=== PATIENT | female | born 1955 | race Caucasian/White ===

== ENCOUNTER 2016-12-27 10:57 | Emergency (ER) | payer OTHER ==
[~2016-12-27] VITALS: Ht 165.1 cm; Wt 56.5 kg
[~2016-12-27 10:57] MED LIST: ALBU1.25 NEB; ALBUAER3 INH; AMLO10TA2 PO; ASPI1TAB69 PO; ATOR40TA16 PO; CLON0.1T PO; FLUT1INH INH; LISI-515 PO; LISI10TA3 PO; VENTAER INH
[2016-12-27 10:59] VITALS: BP 202/96; PULSE 93; RESP 18; TEMP 98.2; O2SAT 98
[2016-12-27 11:07] VITALS: BP 133/73; PULSE 93
--- NOTE | 2016-12-27 11:23 | PD ---
HPI . chronic back and leg pain Chief Complaint: Back/ Neck Pain or Injury Time Seen by Provider: 11:23 Travel History International Travel<30 days: No Contact w/Intl Traveler<30days: No Traveled to known affect area: No History of Present Illness HPI 61 year-old female with multiple medical problems here with complaints of worsening back and leg pain. Patient says she is previously seen her primary care provider and is waiting to get into various specialties and was told by her primary care provider to come to the emergency department for further treatment if her pain intensifies. Today she is complaining of 10/10 back and leg pain. These issues been chronic for over 3-4 years. Per review of her records it indicates that patient was supposed to have some type of stent placed in her lower extremities secondary poor circulation. She has not yet had that done due to some issues with her insurance. She is crying telling me she needs helps so she can go back to work. PFSH Past Medical History COPD: Yes Hypertension: Yes Social History Tobacco Use: Yes Allergies-Medications (Allergen,Severity, Reaction): Coded Allergies: Tylenol/Codeine (Verified Allergy, Severe, Hives, diff Breathing,itching, 12/27/16) Reported Meds & Prescriptions Reported Meds & Active Scripts Active Medrol Dosepak (Methylprednisolone) 4 Mg Dspk 4 Mg PO DIRECTED Per Pharmacist direction Proair Hfa 8.5 GM Inh (Albuterol Sulfate) 90 Mcg/Act Aer 2 Puff INH Q4-6H PRN 108 mcg/actuation Reported Ventolin Hfa 18 GM Inh (Albuterol Sulfate) 90 Mcg/Act Aer 2 Puff INH Q4-6H PRN Clonidine (Clonidine HCl) 0.1 Mg Tab 0.1 Mg PO TID PRN Atorvastatin (Atorvastatin Calcium) 40 Mg Tab 40 Mg PO HS Breo Ellipta Inh (Fluticasone/Vilanterol) 100-25 Mcg/Act Inh 1 Puff INH DAILY Use daily at the same time. Aspirin 81 Mg Tabdr 81 Mg PO DAILY Lisinopril 20 Mg Tab 20 Mg PO DAILY Review of Systems General / Constitutional: No: Fever Eyes: No: Visual changes HENT: No: Headaches Cardiovascular: No: Chest Pain or Discomfort Respiratory: No: Shortness of Breath Gastrointestinal: No: Abdominal Pain Genitourinary: No: Dysuria Musculoskeletal: Positive: Pain (back and b/l leg pain L>R) Skin: No Rash Neurologic: No: Weakness Psychiatric: No: Depression Endocrine: No: Polydipsia Hematologic/Lymphatic: No: Easy Bruising Physical Exam Narrative GENERAL: AAO x 3, no acute distress, Well-nourished, well-developed patient. SKIN: Warm and dry. No visible rashes or bruising. cap refill of toes normal, extremities are pink and no temperature variation HEAD: Normocephalic and atraumatic. EYES: No scleral icterus. No injection or drainage. ENT: No nasal drainage noted. Mucous membranes pink. Airway patent. NECK: Supple, trachea midline. No JVD. CARDIOVASCULAR: Regular rate and rhythm without murmurs, gallops, or rubs. RESPIRATORY: Breath sounds equal bilaterally. No accessory muscle use. No rhonchi or rales. GASTROINTESTINAL: Abdomen soft, non-tender, nondistended. EXTREMITIES: No cyanosis or edema. full range of motion of all joints. Straight leg raise is negative bilaterally. Pulses were not palpable, but dopplerable b/l BACK: Nontender without obvious deformity. No CVA tenderness.no paraspinal tenderness. PSYCH: AAO x 3, normal affect. Data Data Last Documented VS Vital Signs Date Time Temp Pulse Resp B/P Pulse Ox O2 Delivery O2 Flow Rate FiO2 12/27/16 11:07 93 133/73 12/27/16 10:59 98.2 18 98 MDM Medical Decision Making Medical Screen Exam Complete: Yes Emergency Medical Condition: Yes Medical Record Reviewed: Yes Differential Diagnosis sciatica, acute on chronic back pain, PAD, claudication Narrative Course 61 year-old female with multiple medical problems here with complaints of worsening back and leg pain. Patient says she is previously seen her primary care provider and is waiting to get into various specialties and was told by her primary care provider to come to the emergency department for further treatment if her pain intensifies. Today she is complaining of 10/10 back and leg pain. These issues been chronic for over 3-4 years. Per review of her records it indicates that patient was supposed to have some type of stent placed in her lower extremities secondary poor circulation. She has not yet had that done due to some issues with her insurance. She is crying telling me she needs helps so she can go back to work. Patient seen and examined. she appears to have an acute case of sciatica. I discussed treatment with a course of steroids to help reduce inflammation. Explained that she will need to follow-up with primary care provider for further workup and treatment. Patient verbalized understanding of instructions, questions were answered, and thanked me for their care. I advised them if their condition worsens, please return to the nearest emergency room for further care. Diagnosis Primary Impression: Sciatica Qualified Code: M54.31 - Bilateral sciatica Patient Instructions: General Instructions Additional Instructions: Please return to emergency department if your symptoms return or worsen. Follow up with your primary care provider. Take medications as prescribed. As we discussed, you will need to follow-up with her primary care provider for further workup and care. Med/Other Pt SpecificInfo: Prescription(s) given Scripts Methylprednisolone Dosepak (Medrol Dosepak)4 Mg Dspk4 Mg PO DIRECTED #1 DSPK Ref 0 Per Pharmacist direction Prov:Luis A Valdes MD 12/27/16 Disposition: 01 DISCHARGE HOME Condition: Stable Lindsey Hernandez Dec 27, 2016 11:23
[2016-12-27] MEDS ORDERED: MEDR4PAK PO ×2 (11:31→11:33)
[2016-12-27] MEDS ORDERED: VENTAER INH (12:01)
[2017-02-22] MEDS ORDERED: DOXY100C PO (11:36)
[2017-03-13] MEDS ORDERED: LISI-515 PO (15:06)
== END 2016-12-27 11:58 | disposition home or self-care (01) ==
LOC: NEPK 10:57
DX: M54.31 Sciatica, right side (principal); M54.32 Sciatica, left side
CPT/HCPCS: 99283

== ENCOUNTER 2018-09-04 12:33 | Inpatient (IN) ==
[2018-09-04 13:25] LABS: Baso # (Auto) 0.1 th/mm3 (0.0-0.2); Baso % (Auto) 1.2 % (0.0-2.0); Eos # (Auto) 0.6 th/mm3 (0.0-0.4); Eos % (Auto) 8.1 % (0.0-4.0); Hematocrit 28.1 % (35.0-46.0); Lymph # (Auto) 1.6 th/mm3 (1.0-4.8); Lymph % (Auto) 19.6 % (9.0-44.0); Mean Corpuscular HGB Conc 35.6 % (32.0-36.0); Mean Corpuscular Volume 103.8 fL (80.0-100.0); Mean Platelet Volume 8.5 fL (7.0-11.0); Mono # (Auto) 1.3 th/mm3 (0.0-0.9); Mono % (Auto) 16.4 % (0.0-8.0); Neut # (Auto) 4.4 th/mm3 (1.8-7.7); Neut % (Auto) 54.7 % (16.0-70.0); Platelet Count 432 th/mm3 (150-450); Red Blood Count 2.71 mil/mm3 (4.00-5.30); Red Cell Distribution Width 14.1 % (11.6-17.2)
--- NOTE | 2018-09-04 13:27 | XR ---
EXAM DATE: 09/04/2018 1:19 PM EST AGE/SEX: 63 years / Female INDICATIONS: . Chest pain and shortness of breath. CLINICAL DATA: This is the patient's initial encounter. Patient reports that signs and symptoms have been present for 3 days and indicates a pain score of 10/10. MEDICAL/SURGICAL HISTORY: Chronic obstructive pulmonary disease. Hypercholesterolemia. Hypert ension. CABG. COMPARISON: C, CHEST 1V SINGLE AP, 08/26/2018. . FINDINGS: Lungs are hyperinflated. Minimal blunting of the right costophrenic angle is identified. There is no consolidating airspace di sease or significant pulmonary congestion. Heart and mediastinal structures are within normal limits. Osseous structures are intact. CONCLUSION: Minimal blunting of the right costophrenic angle characteristic of a small effusion. COPD No evidence of acute infiltrate or significant congestion. Electronically signed by: Antonio Leonardo MD Board Certified Radiologist 09/04/2018 1:26 PM EST
[2018-09-04] MEDS ORDERED: Morphine Inj 4 MG/ML Vial IV.PUSH ONE (13:31)
[2018-09-04 13:45] LABS: Albumin 2.8 g/dL (3.4-5.0); Anion Gap 8 meq/L (5-15); Aspartate Aminotransferase 26 U/L (15-37); Blood Urea Nitrogen 5 mg/dL (7-18); Calcium 8.6 mg/dL (8.5-10.1); Carbon Dioxide 25.3 meq/L (21.0-32.0); Chloride 105 meq/L (98-107); Glomerular Filtration Rate Greater Than 89 mL/min (>89); Glucose,Random 99 mg/dL (74-106); Potassium 4.5 meq/L (3.5-5.1); Sodium 138 meq/L (136-145)
[2018-09-04 13:48] LABS: Alanine Aminotransferase 27 U/L (10-53); Alkaline Phosphatase 65 U/L (45-117); Total Protein 6.5 g/dL (6.4-8.2)
--- NOTE | 2018-09-04 13:53 | ED ---
HPI General Chief complaint: Nausea/Vomiting/Diarrhea Stated complaint: Nausea/Vomiting Time Seen by Provider: 09/04/18 13:19 Source: patient Mode of arrival: ambulatory Limitations: physical limitation (left leg pain) History of Present Illness HPI narrative: Ms Munoz is a 63 year old female who presents to the ED for evaluation of left leg pain and swelling, and increased chest pain and SOB. The patient had a femoral artery stent placed last Saturday by Dr Nagy and started having these symptoms 2 days ago. She states the left foot is very swollen and the pain has increased since the surgery. She describes this as 10/ 10 pain and she can no longer bear weight on it secondary to pain. The patient also has COPD but she feels this episode of SOB is different from previous episodes and is much worse with exertion. The chest pain is localized to the left axilla that she rates as a 7/10. The patient also complains of nausea and vomiting for 2 days, lightheadedness, and dizziness. She denies syncope, cough, diarrhea, constipation, urinary changes, or vision changes. The patient's PMH is significant for PAD, COPD, and HTN. She quit smoking cigarettes 1 month ago, drinks 1-2 glasses of wine per night, and smokes marijuana 1-2 times per month. Related Data Home Medications Medication Instructions Recorded Confirmed gabapentin 300 mg PO TID 08/16/18 09/04/18 atorvastatin 20 mg PO DAILY 08/26/18 09/04/18 fluticasone [Flonase Allergy 2 spray INTRANASAL DAILY 08/26/18 09/04/18 Relief] losartan 50 mg PO DAILY 08/26/18 09/04/18 vitamin [id number] acid 1 tab PO DAILY 08/26/18 09/04/18 Previous Rx's Medication Instructions Recorded aspirin 81 mg PO DAILY tab 09/01/18 clopidogrel [Plavix] 75 mg PO DAILY #30 tab 09/01/18 oxycodone 5 mg PO Q4-6H PRN #20 cap 09/01/18 Allergies Allergy/AdvReac Type Severity Reaction Status Date / Time acetaminophen Allergy Severe Hives, Verified 09/04/18 12:45 diff Breathing,itching codeine Allergy Severe Hives, Verified 09/04/18 12:45 diff Breathing,itching Review of Systems ROS: all other systems reviewed are negative [facility] Medical History Medical History COPD (chronic obstructive pulmonary disease) (Acute) Herniated disc (Acute) High cholesterol (Acute) Hypertension (Acute) Peripheral arterial disease (Acute) Sciatic leg pain (Acute) Surgical History Surgical History H/O hand surgery (Acute) H/O tubal ligation (Acute) Social History Social History Substance History: No History of Abuse Second Hand Smoke Exposure: Yes Smoking Status: Former smoker Tobacco Type: Cigarettes How Often Do You Have a Drink Containing Alcohol: 2 to 3 times a week Recent Travel in [facility] within the Last 8 Weeks: No Recent Out of Country Travel within the Last 8 Weeks: No Immunization History Tetanus Immunization: <5 Years Exam Narrative Exam Narrative: GENERAL: Patient is a thin female who appears in moderate distress. She is rocking back and forth during the exam and has difficulty sitting still. SKIN: Warm and dry. HEAD: Atraumatic. Normocephalic. EYES: Pupils equal and round and reactive to light. No scleral icterus. No injection or drainage. ENT: No nasal bleeding or discharge. Mucous membranes pink and moist. NECK: Trachea midline. No JVD. CARDIOVASCULAR: Regular rate and rhythm. No murmurs rubs or gallops. Healing incision site on the left chest directly distal to the clavicle, as well as a smaller incision site beneath the left breast just lateral to the mid clavicular line. Pain with palpation of the left axilla. RESPIRATORY: No accessory muscle use. Clear to auscultation. Breath sounds equal bilaterally. RR 24 upon physical exam. GASTROINTESTINAL: Abdomen soft, non-tender, nondistended. Hepatic and splenic margins not palpable. MUSCULOSKELETAL: Extremities without clubbing, or cyanosis. The left lower extremity is edematous from the knee to the foot. Moderate non pitting edema at the knee and 1+ pitting edema at the foot. Pain with palpation of the left foot. Healing surgical incision present in the left groin. Two 1-2cm wounds are noted on the anterior lower left leg with surrounding erythema. Patient states these have been present for 1 month. Full ROM of the upper and lower extremities bilaterally except the left ankle. Left ankle dorsiflexion, plantar flexion, inversion and eversion are limited secondary to pain and edema. 2+ pulses in upper and lower extremities bilaterally. NEUROLOGICAL: Awake and alert. No obvious cranial nerve deficits. Motor grossly within normal limits. Five out of 5 muscle strength in the arms and legs. Normal speech. PSYCHIATRIC: Appropriate mood and affect; insight and judgment normal. Course Initial Documented Vital Signs Temperature 98.4 F 09/04/18 12:41 Pulse Rate 83 09/04/18 12:41 Respiratory Rate 30 H 09/04/18 12:41 Blood Pressure 178/74 H 09/04/18 12:41 Pulse Oximetry 100 09/04/18 12:41 Last Documented Vital Signs Temperature 98.0 F 09/05/18 16:00 Pulse Rate 70 09/05/18 16:00 Respiratory Rate 17 09/05/18 16:00 Blood Pressure 116/55 L 09/05/18 16:00 Pulse Oximetry 99 09/05/18 16:00 Medical Decision Making ANDREINA Attestation ANDREINA supervised visit: Yes Attestation: I was present with the advanced practitioner during the management of this patient. I discussed the case with the advanced practitioner and agree with the findings and plan as documented in their note except as noted below. 63yF presenting with chest pain, dyspnea, and LLE pain/ swelling. Patient is POD #7 s/p left [employer], SFA, and profunda endarterectomy with a pericardial patch angioplasty with left ax-fem bypass with graft for LLE critical limb ischemia by Dr. Villanueva. Her EKG is abnormal and shows deep T wave inversions in the inferior and lateral leads. Her exam is remarkable for swelling, warmth, and tenderness to LLE. Will obtain labs, imaging, and discuss with vascular surgery. [facility] Narrative Medical decision making narrative: 63-year-old female that presents to the ED for evaluation of multiple complaints. Patient was properly examined was found to have signs and symptoms of unclear etiology. Likely concerning for significant illness. She does have an EKG here with new findings per my attending. Labs and imaging were ordered. My attending agrees that CT should be ordered to rule out any sign of PE as well as acute abdominal disease secondary to the patient's recent surgery. Labs and imaging were done. Labs and imaging were essentially unremarkable other than for what appears to be ileus versus gastroenteritis. She is a little dehydrated as well. At this time my attending recommends admission to medicine. Case was discussed with the residents for admission to their service. This was discussed with the patient agrees with plan. Patient surgeon Dr. Sanchez was made aware of patient being admitted. Medical Screen Exam Complete: Yes Emergency Medical Condition: Yes Medical Records Medical records reviewed: Yes I reviewed the patient's medical records. Lab Data Lab results reviewed: Yes I reviewed the patient's lab results. Result diagrams: 09/05/18 15:30 09/05/18 15:30 Lab Results 09/04/18 09/04/18 09/04/18 Range/Units 13:00 13:00 13:00 WBC 8.0 (4.0-11.0) th/mm3 RBC 2.71 L (4.00-5.30) mil/mm3 Hgb 10.0 L (11.6-15.3) gm/dL Hct 28.1 L (35.0-46.0) % MCV 103.8 H (80.0-100.0) fL MCH 37.0 H (27.0-34.0) pg MCHC 35.6 (32.0-36.0) % RDW 14.1 (11.6-17.2) % Plt Count 432 D (150-450) th/mm3 MPV 8.5 (7.0-11.0) fL Neut % (Auto) 54.7 (16.0-70.0) % Lymph % (Auto) 19.6 (9.0-44.0) % Schuyler % (Auto) 16.4 H (0.0-8.0) % Eos % (Auto) 8.1 H (0.0-4.0) % Baso % (Auto) 1.2 (0.0-2.0) % Neut # (Auto) 4.4 (1.8-7.7) th/mm3 Lymph # (Auto) 1.6 (1.0-4.8) th/mm3 Schuyler # (Auto) 1.3 H (0.0-0.9) th/mm3 Eos # (Auto) 0.6 H (0.0-0.4) th/mm3 Baso # (Auto) 0.1 (0.0-0.2) th/mm3 WBC Differential . Differential Comment Auto diff final PT (9.8-11.6) sec INR Ratio APTT (23.4-31.7) sec Sodium 138 (136-145) meq/L Potassium 4.5 (3.5-5.1) meq/L Chloride 105 (98-107) meq/L Carbon Dioxide 25.3 (21.0-32.0) meq/L Anion Gap 8 (5-15) meq/L BUN 5 L (7-18) mg/dL Creatinine 0.60 (0.50-1.00) mg/dL Estimated GFR Greater than 89 (>89) mL/min Random Glucose 99 (74-106) mg/dL Lactic Acid 2.1 H (0.4-2.0) mmol/L Calcium 8.6 (8.5-10.1) mg/dL Total Bilirubin 0.6 (0.2-1.0) mg/dL AST 26 (15-37) U/L ALT 27 (10-53) U/L Alkaline Phosphatase 65 (45-117) U/L Total Creatine Kinase (26-192) U/L CK-MB (CK-2) (0.5-3.6) ng/mL Troponin I (0.02-0.05) ng/mL Total Protein 6.5 (6.4-8.2) g/dL Albumin 2.8 L (3.4-5.0) g/dL 09/04/18 09/04/18 09/04/18 Range/Units 13:00 13:50 21:22 WBC (4.0-11.0) th/mm3 RBC (4.00-5.30) mil/mm3 Hgb (11.6-15.3) gm/dL Hct (35.0-46.0) % MCV (80.0-100.0) fL MCH (27.0-34.0) pg MCHC (32.0-36.0) % RDW (11.6-17.2) % Plt Count (150-450) th/mm3 MPV (7.0-11.0) fL Neut % (Auto) (16.0-70.0) % Lymph % (Auto) (9.0-44.0) % Schuyler % (Auto) (0.0-8.0) % Eos % (Auto) (0.0-4.0) % Baso % (Auto) (0.0-2.0) % Neut # (Auto) (1.8-7.7) th/mm3 Lymph # (Auto) (1.0-4.8) th/mm3 Schuyler # (Auto) (0.0-0.9) th/mm3 Eos # (Auto) (0.0-0.4) th/mm3 Baso # (Auto) (0.0-0.2) th/mm3 WBC Differential Differential Comment PT 12.9 H (9.8-11.6) sec INR 1.3 Ratio APTT 21.5 L (23.4-31.7) sec Sodium (136-145) meq/L Potassium (3.5-5.1) meq/L Chloride (98-107) meq/L Carbon Dioxide (21.0-32.0) meq/L Anion Gap (5-15) meq/L BUN (7-18) mg/dL Creatinine (0.50-1.00) mg/dL Estimated GFR (>89) mL/min Random Glucose (74-106) mg/dL Lactic Acid (0.4-2.0) mmol/L Calcium (8.5-10.1) mg/dL Total Bilirubin (0.2-1.0) mg/dL AST (15-37) U/L ALT (10-53) U/L Alkaline Phosphatase (45-117) U/L Total Creatine Kinase 107 (26-192) U/L CK-MB (CK-2) 1.3 (0.5-3.6) ng/mL Troponin I 0.04 0.05 (0.02-0.05) ng/mL Total Protein (6.4-8.2) g/dL Albumin (3.4-5.0) g/dL 09/04/18 09/05/18 09/05/18 Range/Units 23:49 06:30 06:30 WBC 6.1 (4.0-11.0) th/mm3 RBC 2.50 L (4.00-5.30) mil/mm3 Hgb 9.1 L (11.6-15.3) gm/dL Hct 26.1 L (35.0-46.0) % MCV 104.7 H (80.0-100.0) fL MCH 36.2 H (27.0-34.0) pg MCHC 34.6 (32.0-36.0) % RDW 13.9 (11.6-17.2) % Plt Count 359 (150-450) th/mm3 MPV 8.6 (7.0-11.0) fL Neut % (Auto) 50.0 (16.0-70.0) % Lymph % (Auto) 19.7 (9.0-44.0) % Schuyler % (Auto) 18.9 H (0.0-8.0) % Eos % (Auto) 10.4 H (0.0-4.0) % Baso % (Auto) 1.0 (0.0-2.0) % Neut # (Auto) 3.0 (1.8-7.7) th/mm3 Lymph # (Auto) 1.2 (1.0-4.8) th/mm3 Schuyler # (Auto) 1.1 H (0.0-0.9) th/mm3 Eos # (Auto) 0.6 H (0.0-0.4) th/mm3 Baso # (Auto) 0.1 (0.0-0.2) th/mm3 WBC Differential . Differential Comment Auto diff final PT (9.8-11.6) sec INR Ratio APTT (23.4-31.7) sec Sodium 137 (136-145) meq/L Potassium 3.2 L D (3.5-5.1) meq/L Chloride 103 (98-107) meq/L Carbon Dioxide 23.9 (21.0-32.0) meq/L Anion Gap 10 (5-15) meq/L BUN 3 L (7-18) mg/dL Creatinine 0.59 (0.50-1.00) mg/dL Estimated GFR Greater than 89 (>89) mL/min Random Glucose 85 (74-106) mg/dL Lactic Acid 0.8 (0.4-2.0) mmol/L Calcium 8.1 L (8.5-10.1) mg/dL Total Bilirubin (0.2-1.0) mg/dL AST (15-37) U/L ALT (10-53) U/L Alkaline Phosphatase (45-117) U/L Total Creatine Kinase (26-192) U/L CK-MB (CK-2) (0.5-3.6) ng/mL Troponin I 0.04 (0.02-0.05) ng/mL Total Protein (6.4-8.2) g/dL Albumin (3.4-5.0) g/dL 09/05/18 09/05/18 Range/Units 15:30 15:30 WBC 6.2 (4.0-11.0) th/mm3 RBC 2.22 L (4.00-5.30) mil/mm3 Hgb 8.0 L (11.6-15.3) gm/dL Hct 23.1 L (35.0-46.0) % MCV 104.0 H (80.0-100.0) fL MCH 36.0 H (27.0-34.0) pg MCHC 34.6 (32.0-36.0) % RDW 13.8 (11.6-17.2) % Plt Count 342 (150-450) th/mm3 MPV 8.3 (7.0-11.0) fL Neut % (Auto) (16.0-70.0) % Lymph % (Auto) (9.0-44.0) % Schuyler % (Auto) (0.0-8.0) % Eos % (Auto) (0.0-4.0) % Baso % (Auto) (0.0-2.0) % Neut # (Auto) (1.8-7.7) th/mm3 Lymph # (Auto) (1.0-4.8) th/mm3 Schuyler # (Auto) (0.0-0.9) th/mm3 Eos # (Auto) (0.0-0.4) th/mm3 Baso # (Auto) (0.0-0.2) th/mm3 WBC Differential Differential Comment PT (9.8-11.6) sec INR Ratio APTT (23.4-31.7) sec Sodium 137 (136-145) meq/L Potassium 3.5 (3.5-5.1) meq/L Chloride 103 (98-107) meq/L Carbon Dioxide 27.9 (21.0-32.0) meq/L Anion Gap 6 (5-15) meq/L BUN 3 L (7-18) mg/dL Creatinine 0.68 (0.50-1.00) mg/dL Estimated GFR 88 L (>89) mL/min Random Glucose 97 (74-106) mg/dL Lactic Acid (0.4-2.0) mmol/L Calcium 8.0 L (8.5-10.1) mg/dL Total Bilirubin (0.2-1.0) mg/dL AST (15-37) U/L ALT (10-53) U/L Alkaline Phosphatase (45-117) U/L Total Creatine Kinase (26-192) U/L CK-MB (CK-2) (0.5-3.6) ng/mL Troponin I (0.02-0.05) ng/mL Total Protein (6.4-8.2) g/dL Albumin (3.4-5.0) g/dL Imaging Data Attestation: I personally reviewed and interpreted this imaging study as follows : Radiologist's impression: Chest X-Ray 09/04/18 00:00 CONCLUSION: Minimal blunting of the right costophrenic angle characteristic of a small effusion. COPD No evidence of acute infiltrate or significant congestion. Chest CTA 09/04/18 13:35 CONCLUSION: 1. This study is negative for pulmonary embolism. 2. No evidence of acute cardiopulmonary process. 3. Left axillary bypass graft Venous Doppler Study 09/04/18 13:37 CONCLUSION: 1. No evidence of deep venous thrombosis. 2. Hematoma in the left groin. Abdomen/Pelvis CT 09/04/18 13:57 CONCLUSION: 1. Nonspecific, nonobstructive bowel gas pattern which may represent an ileus or gastroenteritis. 2. Postsurgical changes in the left inguinal region status post femoral bypass surgery with low density fluid collection which may represent a hematoma and/or seroma. 3. Unremarkable gallbladder. 4. Small right pleural effusion. Lower Extremity Ultrasound 09/05/18 00:00 CONCLUSION: 1. There is a complex fluid collection in the left groin measuring 4.5 x 3.8 cm suggestive of a focal hematoma. 2. No internal flow is demonstrated. ECG Data Attestation: I personally reviewed and interpreted this ECG as follows: Interpretation: Rate: 87 BPM Rhythm: Sinus [place]: Normal Intervals: Normal intervals, no blocks, QTc 468 ms Q waves: V2 T waves: Deep T wave inversions in II, III, aVF, V3-V6 ST segments: No elevations or depressions Impression: Abnormal EKG, T wave inversions were present on EKG on 08/26/2018. Discharge Plan Discharge Disposition Patient Disposition: ED Admit(ED Internal Use Only) Discharge Order Discharge Orders: Vascular Surgery Clear for Discharge (Routine); Ordered 09/05/18 Ordered By: Orlando Villanueva ED Use Only Admit Order (Routine); Ordered 09/04/18 Ordered By: Jelani Ledbetter Discharge Details Diagnosis: Chest pain, rule out acute myocardial infarction, Ileus, Cellulitis Physicians Team ED Provider: Gianna Garay ED Midlevel Provider: Jelani Ledbetter Primary Care Provider: Kelly Bajwa, Attending Provider: Minesh Butt Other Providers: Orlando Villanueva ; [facility],Insurance ; Marylou Lester Status ED Status: Left Department Discharge Information Discharge Date/Time: 09/04/18 18:55
[2018-09-04 13:54] LABS: Creatine Kinase 107 U/L (26-192); Troponin I 0.04 ng/mL (0.02-0.05)
[2018-09-04] MEDS ORDERED: Sodium Chlor 0.9% Inj 500 ML IV.SIG SCH (14:00)
[2018-09-04 14:06] LABS: Creatine Kinase MB 1.3 ng/mL (0.5-3.6)
[2018-09-04 14:12] LABS: Activated Partial Thrombo Time 21.5 sec (23.4-31.7); INR 1.3 Ratio; Prothrombin Time 12.9 sec (9.8-11.6)
--- NOTE | 2018-09-04 15:03 | US ---
EXAM DATE: 09/04/2018 3:00 PM EST AGE/SEX: 63 years / Female INDICATIONS: Left leg pain and swelling after bypass graft surgery. CLINICAL DATA: This is the patient's initial encounter. Patient reports that signs and symptoms have been present for 1 day and indicates a pain score of 8/10. MEDICAL/SURGICAL HISTORY: Chronic obstructive pulmonary disease. Hypercholesterolemia. Hypert ension. Herniated disc. Peripheral artery disease. Sciatic leg pain. Tubal ligation. Hand surgery. COMPARISON: No prior exams available for comparison. TECHNIQUE: Venous ultrasound of both lower extremities was performed from the inguinal ligament to t he proximal calf. Real-time, color Doppler and spectral tracing, compression and augmentation techni ques were used. FINDINGS: Normal compression of the deep venous system from the inguinal region to the proximal calf . No echogenic clot is seen. Normal response of the venous system to augmentation and respiration. There is a 4.1 x 2.9 x 3.3 cm heterogeneous hypoechoic mass in the left groin with no color flow. Thi s lies directly adjacent to the femoral artery and vein with no evidence of pseudoaneurysm. CONCLUSION: 1. No evidence of deep venous thrombosis. 2. Hematoma in the left groin. Electronically signed by: Orlando Can MD Board Certified Radiologist 09/04/2018 3:02 PM EST
--- NOTE | 2018-09-04 15:42 | CT ---
EXAM DATE: 09/04/2018 3:36 PM EST AGE/SEX: 63 years / Female INDICATIONS: Chest pain shortness of breath CLINICAL DATA: This is the patient's initial encounter. Patient reports that signs and symptoms have been present for 1 day and indicates a pain score of 10/10. MEDICAL/SURGICAL HISTORY: Chronic obstructive pulmonary disease. Hypertension. Peripheral vascula r disease. Tubal ligation. RADIATION DOSE: 11.37 CTDI (mGy) COMPARISON: No prior exams available for comparison. TECHNIQUE: Volumetric scanning was performed using a multi-row detector CT scanner during bolus infu laxmi of 71 ml Omnipaque 350 (iohexol) nonionic water-soluble contrast as a cumulative dose for multi ple exams. The data was post processed with a variety of visualization algorithms including full volu me maximum intensity projection and sliding thin slab reformation. Using automated exposure control a nd adjustment of the mA and/or kV according to patient size, radiation dose was kept as low as reason ably achievable to obtain optimal diagnostic quality images. DICOM format image data is available el ectronically for review and comparison. FINDINGS: Pulmonary Arteries: No filling defects are seen in the pulmonary arteries out to the subsegmental ve ssels. The left and right pulmonary arteries are normal in diameter. Lung: No infiltrates seen. Effusion: None. Mediastinum: No evidence of mediastinal or hilar adenopathy. Other: A left-sided axillary bypass graft is noted. CONCLUSION: 1. This study is negative for pulmonary embolism. 2. No evidence of acute cardiopulmonary process. 3. Left axillary bypass graft Electronically signed by: Antonio Leonardo MD Board Certified Radiologist 09/04/2018 3:41 PM EST
--- NOTE | 2018-09-04 15:51 | CT ---
EXAM DATE: 09/04/2018 3:42 PM EST AGE/SEX: 63 years / Female INDICATIONS: Upper abdomen pain and nausea and vomiting CLINICAL DATA: This is the patient's initial encounter. Patient reports that signs and symptoms have been present for 1 day and indicates a pain score of 10/10. MEDICAL/SURGICAL HISTORY: Chronic obstructive pulmonary disease. Hypertension. Peripheral art tomás disease. Tubal ligation. ORAL CONTRAST: No oral contrast ingested. RADIATION DOSE: 5.51 CTDI (mGy) COMPARISON: No prior exams available for comparison. TECHNIQUE: Multiple contiguous axial images were obtained through the abdomen and pelvis following b olus infusion of 71 ml Omnipaque 350 (iohexol) nonionic water-soluble contrast as a cumulative dose for multiple exams. No oral contrast ingested. Using automated exposure control and adjustment of t he mA and/or kV according to patient size, radiation dose was kept as low as reasonably achievable to obtain optimal diagnostic quality images. DICOM format image data is available electronically for r eview and comparison. FINDINGS: Lower Lungs: There is a small right pleural effusion. Liver: The liver has a homogeneous density without space-occupying lesion. There is no dilation of th e biliary tree. The gallbladder appears unremarkable. Spleen: Homogeneous density without enlargement. Pancreas: Unremarkable without mass or calcification. Kidneys: Normal in size and shape. No evidence of mass or hydronephrosis. Adrenal Glands: Unremarkable. Aorta: Atherosclerotic changes are noted in the aorta with dilatation, tortuosity and calcification . Bowel/Mesentery: No oral contrast was given limiting the sensitivity. There are multiple loops of no ndilated air-containing small bowel with multiple small air-fluid levels. Gas and stool are noted seg mentally in the colon. There is no free air or fluid. Abdominal Wall: Intact. Retroperitoneum: No evidence of adenopathy in the retrocrural, para-aortic, or deep pelvic regions. Bladder: Contours are smooth. Reproductive Organs: No abnormal masses or calcifications seen. Inguinal: There is a low-density fluid collection in the left inguinal region with multiple surgical clips and williams. This measures up to 3.6 x 3 cm in diameter and surrounds the origin of the femora l bypass graft. Bony Structures: Osteopenia, degenerative change and scoliosis are present. CONCLUSION: 1. Nonspecific, nonobstructive bowel gas pattern which may represent an ileus or gastroenteritis. 2. Postsurgical changes in the left inguinal region status post femoral bypass surgery with low dens ity fluid collection which may represent a hematoma and/or seroma. 3. Unremarkable gallbladder. 4. Small right pleural effusion. Electronically signed by: Orlando Can MD Board Certified Radiologist 09/04/2018 3:50 PM EST
--- NOTE | 2018-09-04 16:58 | P.HPFP ---
History of Present Illness Primary Care Physician: [facility] <Minesh Butt - 09/05/18 13:09> [facility] <ArleneTonoAbebe J - 09/04/18 16:58> Chief Complaint: Left lower extremity pain <ChristianojoselineRoxannehenny Davenport - 09/04/18 20 :54> History of Present Illness: She is a 63-year-old female with past medical history significant for peripheral artery disease and COPD who is s/p left-sided femoral endarterectomy , patch angioplasty and axillary to femoral bypass on 08/28/18 who presented with increasing leg pain and swelling as well as nausea/vomiting and inability to tolerate p.o. She reports that she has had symptoms related to her peripheral artery disease for a couple of years now. The procedure went well and she had palpable posterior tibial and dorsalis pedis pulses afterwards. She did have some postoperative swelling, pain, and difficulty with ambulation. She was discharged home on postoperative day 4 in stable condition. She continued to have difficulty moving around the house due to the pain and continued to have some tingling sensations in the left lower extremity. These were present before the operation and have experienced little interval change. The swelling began to increase after discharge and secondary to that she had difficulty with range of motion of the toes. She is also continued to have some chest pain that she currently rates a 7 out of 10 and intermittent mostly in the left axillary area near her surgical site. She has had nausea, vomiting, lightheadedness, dizziness for the past 2 days without diaphoresis or palpitations. She has been unable to keep most foods down, but has been staying adequately hydrated. Today she had an appointment with the vascular surgeons who sent her here due to her symptoms. She denies fever, chills, changes in vision, changes in hearing, abdominal pain , constipation or diarrhea. She does have significant anxiety about her symptoms and says that her pain is worse when she gets anxious. She is tearful discussion and states that it is increasingly difficult to get around her home and she is not able to take care of herself right now. Past medical history: Peripheral artery disease COPD Hypertension Hypercholesterolemia Sciatica Surgical history: Left femoral endarterectomy and axillary to femoral bypass Bilateral tubal ligation Surgery of the hand Social history: She lives by herself She is a former smoker since the age of 16 who smokes 1 pack/day She is an occasional alcohol user and an occasional marijuana user. She denies any other drug use or any history of IV drug use. <Abebe Jacobs - 09/04/18 20:54> - Diagnosis (1) PAD (peripheral artery disease) (2) Ileus (3) Hypertension (4) Hyperlipidemia (5) COPD (chronic obstructive pulmonary disease) <Minesh Butt - 09/05/18 13:09> (1) PAD (peripheral artery disease) (2) Ileus (3) Hypertension (4) Hyperlipidemia (5) COPD (chronic obstructive pulmonary disease) <Abebe Jacobs - 09/04/18 23:46> Inpatient Certification: I certify that the inpatient services were ordered in accordance with Medicare regulations governing the order. This includes certification that hospital inpatient services are reasonable and necessary and in the case of services not specified as inpatient-only under 42 CFR 419.22(n), that they are appropriately provided as inpatient services in accordance to with the 2-midnight benchmark under 43 CFR 412.3(e) <Minesh Butt - 09/05/18 13:09> Review of Systems Constitutional: Denies chills, Denies fever(s) <Abebe Jacobs 20:12> Eyes: Denies blurry vision, Denies change in vision <Abebe Jacobs 20:12> Ears, Nose, Mouth, and Throat: Denies abnormal hearing, Denies ringing in the ears <Abebe Jacobs 09/04/18 20:12> Cardiovascular: Reports chest pain, Denies fainting, Denies irregular heart rhythm, Denies rapid, pounding, or irregular heartbeat <Abebe Jacobs 09/04/18 20:54> Respiratory: Reports shortness of breath, Reports shortness of breath with activity, Denies cough, Denies wheezing <Abebe Jacobs 09/04/18 20:54 > Gastrointestinal: Reports nausea, Reports vomiting, Denies abdominal pain, Denies constipation, Denies loose stools <Abebe Jacobs 09/04/18 20: 54> Musculoskeletal: Reports back pain, Reports tingling <Abebe Jacobs - 09/04/18 20:54> PMFSH - History History Provided By: Patient <Abebe Jacobs - 09/04/18 16:58> - Medical History Medical History: Medical History (Last Reviewed 09/05/18 @ 08:16 by Iraida Clarke) COPD (chronic obstructive pulmonary disease) Herniated disc High cholesterol Hypertension Peripheral arterial disease Sciatic leg pain <Minesh Butt - 09/05/18 13:09> Medical History (Last Reviewed 09/04/18 @ 17:31 by JUAN Gandara) COPD (chronic obstructive pulmonary disease) Herniated disc High cholesterol Hypertension Peripheral arterial disease Sciatic leg pain <Abebe Jacobs - 09/04/18 20:12> - Surgical History Surgical History: Surgical History (Last Reviewed 09/05/18 @ 08:16 by Iraida Clarke) H/O hand surgery H/O tubal ligation <Minesh Butt - 09/05/18 13:09> Surgical History (Last Reviewed 09/04/18 @ 17:31 by JUAN Gandara) H/O hand surgery H/O tubal ligation <Abebe Jacobs - 09/04/18 20:12> - Tobacco History Second Hand Smoke Exposure: Yes <Abebe Jacobs 09/04/18 16:58> Tobacco Use In Past 30 Days: Yes <Abebe Jacobs 09/04/18 16:58> Smoking Status: Former smoker <Abebe Jacobs 09/04/18 16:58> Tobacco Type: Cigarettes <Abebe Jacobs 09/04/18 16:58> - Alcohol History How Often Do You Have a Drink Containing Alcohol: 2 to 3 times a week < Abebe Jacobs 09/04/18 16:58> - Substance Use History Substance History: No History of Abuse <Abebe Jacobs 09/04/18 16:58> - Travel History Recent Travel in the [facility] Within the Last 8 Weeks: No <Abebe Jacobs 09/04/18 16:58> Recent Travel Out of the Country Within the Last 8 Weeks: No <Abebe Jacobs 09/04/18 16:58> - Immunization History Tetanus Immunization: <5 Years <Abebe Jacobs - 09/04/18 16:58> Medications and Allergies Allergies Allergy/AdvReac Type Severity Reaction Status Date / Time acetaminophen Allergy Severe Hives, Verified 09/04/18 12:45 diff Breathing,itching codeine Allergy Severe Hives, Verified 09/04/18 12:45 diff Breathing,itching <Minesh Butt - 09/05/18 13:09> Home Medications Medication Instructions Recorded Confirmed Type gabapentin 300 mg PO TID 08/16/18 09/04/18 History atorvastatin 20 mg PO DAILY 08/26/18 09/04/18 History fluticasone [Flonase Allergy 2 spray INTRANASAL DAILY 08/26/18 09/04/18 History Relief] losartan 50 mg PO DAILY 08/26/18 09/04/18 History vitamin [id number] acid 1 tab PO DAILY 08/26/18 09/04/18 History <Minesh Butt - 09/05/18 13:09> Active Medications: Active Medications Al Hydroxide/Mg Hydroxide (Milk Of Osorio Caldwell) 30 ml PO Q12H PRN PRN Reason: Mild Constipation Albuterol (Duoneb Neb (Prn)) 1 ampul NEB Q6HR NEB PRN PRN Reason: SHORTNESS OF BREATH Aspirin (Aspirin Chew) 81 mg PO DAILY [facility] Last Admin: 09/05/18 08:38 Dose: 81 mg Atorvastatin Calcium (Lipitor) 20 mg PO DAILY [facility] Last Admin: 09/05/18 08:37 Dose: 20 mg Clopidogrel Bisulfate (Plavix) 75 mg PO DAILY [facility] Last Admin: 09/05/18 08:37 Dose: 75 mg Enoxaparin Sodium (Lovenox Inj) 40 mg SQ Q24H [facility] Last Admin: 09/04/18 18:53 Dose: 40 mg Fluticasone Propionate (Flonase Nasal Plush) 2 spray EACH NARE DAILY [facility] Last Admin: 09/05/18 08:40 Dose: 2 spray Gabapentin (Neurontin) 300 mg PO TID [facility] Last Admin: 09/05/18 08:36 Dose: 300 mg Lactated Ringer's (Lr 1000 Ml Inj) 1,000 mls @ 84 mls/hr IV.CONT .[id number] [facility] Last Admin: 09/05/18 07:07 Dose: Not Given Losartan Potassium (Cozaar) 50 mg PO DAILY [facility] Last Admin: 09/05/18 08:37 Dose: 50 mg Metoclopramide HCl (Reglan Inj) 5 mg IV.PUSH Q6HR PRN; Protocol PRN Reason: NAUSEA OR VOMITING Morphine Sulfate (Morphine Inj) 4 mg IV.PUSH Q4H PRN PRN Reason: pain scale 6-10 Last Admin: 09/05/18 10:33 Dose: 4 mg Morphine Sulfate (Morphine Inj) 2 mg IV.PUSH Q4H PRN PRN Reason: Pain scale 3-5 Senna/Docusate Sodium (Roseann-Colace) 1 tab PO BID [facility] Last Admin: 09/05/18 08:37 Dose: 1 tab Sodium Chloride (Ns Flush) 2 ml IV.FLUSH BID [facility] Last Admin: 09/05/18 08:38 Dose: 2 ml Sodium Chloride (Ns Flush) 2 ml IV.FLUSH PRN PRN PRN Reason: FLUSH AFTER USING IV ACCESS <Minesh Btut - 09/05/18 13:09> Exam Vital signs: Vital Signs 09/04/18 13:29 09/04/18 18:16 09/04/18 20:00 Temperature 98.3 F Pulse Rate 86 79 85 Respiratory Rate 20 16 18 Blood Pressure 165/78 H 122/69 142/65 H Pulse Oximetry 100 94 L 97 09/05/18 00:00 09/05/18 04:00 09/05/18 06:30 Temperature 100.5 F H 99.3 F Pulse Rate 99 H 83 Respiratory Rate 19 17 19 Blood Pressure 126/60 110/55 L Pulse Oximetry 95 95 09/05/18 08:00 09/05/18 08:20 09/05/18 12:00 Temperature 97.9 F 98.1 F Pulse Rate 76 81 66 Respiratory Rate 17 17 Blood Pressure 114/56 L 138/62 Pulse Oximetry 99 100 Intake & Output 09/04/18 09/05/18 09/05/18 18:59 06:59 18:59 Intake Total 500 / 500 1480 / 1480 Balance 500 / 500 1480 / 1480 Weight 55.338 kg 56.8 kg Intake: IV 500 / 500 1000 / 1000 LR 1000 mL Inj 1,000 ML @ 84 1000 / 1000 mls/hr IV.CONT .[id number] [facility] Rx# :[id number] NS Inj 500 ML @ 1000 mls/hr IV. 500 / 500 SIG BOLUS SHAWN Rx#:[id number] Oral 480 / 480 Other: # Voids 4 Date of Last Bowel Movement 09/04/18 09/04/18 Weight On Admission 56.8 kg <Minesh Butt - 09/05/18 13:09> Vital Signs 09/04/18 12:41 09/04/18 13:29 Temperature 98.4 F Pulse Rate 83 86 Respiratory Rate 30 H 20 Blood Pressure 178/74 H 165/78 H Pulse Oximetry 100 100 Intake & Output 09/03/18 09/04/18 09/04/18 18:59 06:59 18:59 Intake Total 500 / 500 Balance 500 / 500 Weight 55.338 kg Intake: IV 500 / 500 NS Inj 500 ML @ 1000 mls/hr IV. 500 / 500 SIG BOLUS SHAWN Rx#:[id number] <Abebe Jacobs - 09/04/18 16:58> Narrative: General: Well-developed, alert, and in no acute distress. Appears stated age HEENT: Atraumatic, PERRL, non-icteric sclera and no conjunctival injection, moist mucous membranes Neck: Supple, trachea midline Cardiac: Regular rate and rhythm with 2 out of 6 systolic murmur Pulmonary: Non-labored breathing. Lungs clear to auscultation bilaterally with good air movement and without wheeze Abdomen: Normal bowel sounds, soft and non-tender without rebound or guarding Extremities: 2+ pitting edema of the left foot and pitting edema to the left knee. Significant pain on range of motion of the foot. 2+ posterior tibial and dorsalis pedis pulses. There are 2 circular 2 cm wounds that appear chronic to the left richards. Sensation is intact and all movements are grossly intact. Strength and full ROM testing is unable to be performed due to pain. Psychiatric: Anxious appearing, cries during our discussion, appropriate affect <Abebe Jacobs - 09/04/18 20:54> Results - Labs Result diagrams: 09/05/18 06:30 09/05/18 06:30 <Minesh Butt - 09/05/18 13:09> Abnormal lab results 09/04/18 09/04/18 09/04/18 Range/Units 13:00 13:00 13:00 RBC 2.71 L (4.00-5.30) mil/mm3 Hgb 10.0 L (11.6-15.3) gm/dL Hct 28.1 L (35.0-46.0) % MCV 103.8 H (80.0-100.0) fL MCH 37.0 H (27.0-34.0) pg [place] % (Auto) 16.4 H (0.0-8.0) % Eos % (Auto) 8.1 H (0.0-4.0) % [place] # (Auto) 1.3 H (0.0-0.9) th/mm3 Eos # (Auto) 0.6 H (0.0-0.4) th/mm3 PT (9.8-11.6) sec APTT (23.4-31.7) sec Potassium (3.5-5.1) meq/L BUN 5 L (7-18) mg/dL Lactic Acid 2.1 H (0.4-2.0) mmol/L Calcium (8.5-10.1) mg/dL Albumin 2.8 L (3.4-5.0) g/dL 09/04/18 09/05/18 09/05/18 Range/Units 13:50 06:30 06:30 RBC 2.50 L (4.00-5.30) mil/mm3 Hgb 9.1 L (11.6-15.3) gm/dL Hct 26.1 L (35.0-46.0) % MCV 104.7 H (80.0-100.0) fL MCH 36.2 H (27.0-34.0) pg [place] % (Auto) 18.9 H (0.0-8.0) % Eos % (Auto) 10.4 H (0.0-4.0) % [place] # (Auto) 1.1 H (0.0-0.9) th/mm3 Eos # (Auto) 0.6 H (0.0-0.4) th/mm3 PT 12.9 H (9.8-11.6) sec APTT 21.5 L (23.4-31.7) sec Potassium 3.2 L D (3.5-5.1) meq/L BUN 3 L (7-18) mg/dL Lactic Acid (0.4-2.0) mmol/L Calcium 8.1 L (8.5-10.1) mg/dL Albumin (3.4-5.0) g/dL Short CBC 09/04/18 09/05/18 Range/Units 13:00 06:30 WBC 8.0 6.1 (4.0-11.0) th/mm3 Hgb 10.0 L 9.1 L (11.6-15.3) gm/dL Hct 28.1 L 26.1 L (35.0-46.0) % Plt Count 432 D 359 (150-450) th/mm3 BMP 09/04/18 09/05/18 13:00 06:30 Sodium 138 137 Potassium 4.5 3.2 L D Chloride 105 103 Carbon Dioxide 25.3 23.9 BUN 5 L 3 L Creatinine 0.60 0.59 Calcium 8.6 8.1 L Cardiac Enzymes 09/04/18 09/04/18 09/05/18 Range/Units 13:00 21:22 06:30 Total Creatine Kinase 107 (26-192) U/L CK-MB (CK-2) 1.3 (0.5-3.6) ng/mL Troponin I 0.04 0.05 0.04 (0.02-0.05) ng/mL Liver Function 09/04/18 Range/Units 13:00 Total Bilirubin 0.6 (0.2-1.0) mg/dL AST 26 (15-37) U/L ALT 27 (10-53) U/L Alkaline Phosphatase 65 (45-117) U/L Albumin 2.8 L (3.4-5.0) g/dL <Minesh Butt - 09/05/18 13:09> Abnormal lab results 09/04/18 09/04/18 09/04/18 Range/Units 13:00 13:00 13:00 RBC 2.71 L (4.00-5.30) mil/mm3 Hgb 10.0 L (11.6-15.3) gm/dL Hct 28.1 L (35.0-46.0) % MCV 103.8 H (80.0-100.0) fL MCH 37.0 H (27.0-34.0) pg [place] % (Auto) 16.4 H (0.0-8.0) % Eos % (Auto) 8.1 H (0.0-4.0) % [place] # (Auto) 1.3 H (0.0-0.9) th/mm3 Eos # (Auto) 0.6 H (0.0-0.4) th/mm3 PT (9.8-11.6) sec APTT (23.4-31.7) sec BUN 5 L (7-18) mg/dL Lactic Acid 2.1 H (0.4-2.0) mmol/L Albumin 2.8 L (3.4-5.0) g/dL 09/04/18 Range/Units 13:50 RBC (4.00-5.30) mil/mm3 Hgb (11.6-15.3) gm/dL Hct (35.0-46.0) % MCV (80.0-100.0) fL MCH (27.0-34.0) pg [place] % (Auto) (0.0-8.0) % Eos % (Auto) (0.0-4.0) % [place] # (Auto) (0.0-0.9) th/mm3 Eos # (Auto) (0.0-0.4) th/mm3 PT 12.9 H (9.8-11.6) sec APTT 21.5 L (23.4-31.7) sec BUN (7-18) mg/dL Lactic Acid (0.4-2.0) mmol/L Albumin (3.4-5.0) g/dL Short CBC 09/04/18 Range/Units 13:00 WBC 8.0 (4.0-11.0) th/mm3 Hgb 10.0 L (11.6-15.3) gm/dL Hct 28.1 L (35.0-46.0) % Plt Count 432 D (150-450) th/mm3 BMP 09/04/18 13:00 Sodium 138 Potassium 4.5 Chloride 105 Carbon Dioxide 25.3 BUN 5 L Creatinine 0.60 Calcium 8.6 Cardiac Enzymes 09/04/18 Range/Units 13:00 Total Creatine Kinase 107 (26-192) U/L CK-MB (CK-2) 1.3 (0.5-3.6) ng/mL Troponin I 0.04 (0.02-0.05) ng/mL Liver Function 09/04/18 Range/Units 13:00 Total Bilirubin 0.6 (0.2-1.0) mg/dL AST 26 (15-37) U/L ALT 27 (10-53) U/L Alkaline Phosphatase 65 (45-117) U/L Albumin 2.8 L (3.4-5.0) g/dL <Abebe Jacobs - 09/04/18 16:58> - Imaging Impressions Chest X-Ray 09/04/18 00:00 CONCLUSION: Minimal blunting of the right costophrenic angle characteristic of a small effusion. COPD No evidence of acute infiltrate or significant congestion. Chest CTA 09/04/18 13:35 CONCLUSION: 1. This study is negative for pulmonary embolism. 2. No evidence of acute cardiopulmonary process. 3. Left axillary bypass graft Venous Doppler Study 09/04/18 13:37 CONCLUSION: 1. No evidence of deep venous thrombosis. 2. Hematoma in the left groin. Abdomen/Pelvis CT 09/04/18 13:57 CONCLUSION: 1. Nonspecific, nonobstructive bowel gas pattern which may represent an ileus or gastroenteritis. 2. Postsurgical changes in the left inguinal region status post femoral bypass surgery with low density fluid collection which may represent a hematoma and/or seroma. 3. Unremarkable gallbladder. 4. Small right pleural effusion. <Minesh Butt - 09/05/18 13:09> Impressions Chest X-Ray 09/04/18 00:00 CONCLUSION: Minimal blunting of the right costophrenic angle characteristic of a small effusion. COPD No evidence of acute infiltrate or significant congestion. Chest CTA 09/04/18 13:35 CONCLUSION: 1. This study is negative for pulmonary embolism. 2. No evidence of acute cardiopulmonary process. 3. Left axillary bypass graft Venous Doppler Study 09/04/18 13:37 CONCLUSION: 1. No evidence of deep venous thrombosis. 2. Hematoma in the left groin. Abdomen/Pelvis CT 09/04/18 13:57 CONCLUSION: 1. Nonspecific, nonobstructive bowel gas pattern which may represent an ileus or gastroenteritis. 2. Postsurgical changes in the left inguinal region status post femoral bypass surgery with low density fluid collection which may represent a hematoma and/or seroma. 3. Unremarkable gallbladder. 4. Small right pleural effusion. <Abebe Jacobs - 09/04/18 16:58> Caprini VTE Risk Assessment Caprini VTE Risk Assessment: Moderate/High Risk (score >= 2) <Abebe Jacobs - 09/04/18 20:29> Caprini Risk Assessment Model: Point Value = 1 Point Value = 2 Point Value = 3 Point Value = 5 Age 41-60 Minor surgery BMI > 25 kg/m2 Swollen legs Varicose veins or History of unexplained or recurrent spontaneous Oral contraceptives or hormone replacement Sepsis (< 1 month) Serious lung disease, including pneumonia (< 1 month) Abnormal pulmonary function Acute myocardial infarction Congestive heart failure (< 1 month) History of inflammatory bowel disease Medical patient at bed rest Age 61-74 Arthroscopic surgery Major open surgery (> 45 min) Laparoscopic surgery (> 45 min) Malignancy Confined to bed (> 72 hours) Immobilizing plaster cast Central venous access Age >= 75 History of VTE Family history of VTE Factor V Leiden Prothrombin [id number] Lupus anticoagulant Anticardiolipin antibodies Elevated serum homocysteine Heparin-induced thrombocytopenia Other congenital or acquired thrombophilia Stroke (< 1 month) Elective arthroplasty Hip, pelvis, or leg fracture Acute spinal cord injury (< 1 month) <Minesh Butt - 09/05/18 13:09> Point Value = 1 Point Value = 2 Point Value = 3 Point Value = 5 Age 41-60 Minor surgery BMI > 25 kg/m2 Swollen legs Varicose veins or History of unexplained or recurrent spontaneous Oral contraceptives or hormone replacement Sepsis (< 1 month) Serious lung disease, including pneumonia (< 1 month) Abnormal pulmonary function Acute myocardial infarction Congestive heart failure (< 1 month) History of inflammatory bowel disease Medical patient at bed rest Age 61-74 Arthroscopic surgery Major open surgery (> 45 min) Laparoscopic surgery (> 45 min) Malignancy Confined to bed (> 72 hours) Immobilizing plaster cast Central venous access Age >= 75 History of VTE Family history of VTE Factor V Leiden Prothrombin [id number] Lupus anticoagulant Anticardiolipin antibodies Elevated serum homocysteine Heparin-induced thrombocytopenia Other congenital or acquired thrombophilia Stroke (< 1 month) Elective arthroplasty Hip, pelvis, or leg fracture Acute spinal cord injury (< 1 month) <Abebe Jacobs - 09/04/18 16:58> Prophylaxis Regimen: Total Risk Factor Score Risk Level Prophylaxis Regimen 0-1 Low Early ambulation 2 Moderate Order ONE of the following: *Sequential Compression Device (SCD) *Heparin 5000 units SQ BID 3-4 Higher Order ONE of the following medications: *Heparin 5000 units SQ TID *Enoxaparin/Lovenox 40 mg SQ daily (WT < 150 kg, CrCl > 30 mL/min) *Enoxaparin/Lovenox 30 mg SQ daily (WT < 150 kg, CrCl > 10-29 mL/min) *Enoxaparin/Lovenox 30 mg SQ BID (WT < 150 kg, CrCl > 30 mL/min) AND/OR *Sequential Compression Device (SCD) 5 or more Highest Order ONE of the following medications: *Heparin 5000 units SQ TID (Preferred with Epidurals) *Enoxaparin/Lovenox 40 mg SQ daily (WT < 150 kg, CrCl > 30 mL/min) *Enoxaparin/Lovenox 30 mg SQ daily (WT < 150 kg, CrCl > 10-29 mL/min) *Enoxaparin/Lovenox 30 mg SQ BID (WT < 150 kg, CrCl > 30 mL/min) AND *Sequential Compression Device (SCD) <Minesh Butt - 09/05/18 13:09> Total Risk Factor Score Risk Level Prophylaxis Regimen 0-1 Low Early ambulation 2 Moderate Order ONE of the following: *Sequential Compression Device (SCD) *Heparin 5000 units SQ BID 3-4 Higher Order ONE of the following medications: *Heparin 5000 units SQ TID *Enoxaparin/Lovenox 40 mg SQ daily (WT < 150 kg, CrCl > 30 mL/min) *Enoxaparin/Lovenox 30 mg SQ daily (WT < 150 kg, CrCl > 10-29 mL/min) *Enoxaparin/Lovenox 30 mg SQ BID (WT < 150 kg, CrCl > 30 mL/min) AND/OR *Sequential Compression Device (SCD) 5 or more Highest Order ONE of the following medications: *Heparin 5000 units SQ TID (Preferred with Epidurals) *Enoxaparin/Lovenox 40 mg SQ daily (WT < 150 kg, CrCl > 30 mL/min) *Enoxaparin/Lovenox 30 mg SQ daily (WT < 150 kg, CrCl > 10-29 mL/min) *Enoxaparin/Lovenox 30 mg SQ BID (WT < 150 kg, CrCl > 30 mL/min) AND *Sequential Compression Device (SCD) <ArleneRoxannehenny Davenport - 09/04/18 16:58> Assessment and Plan - Assessment (1) PAD (peripheral artery disease) Code(s): I73.9 - Peripheral vascular disease, unspecified Status: Acute (2) Ileus Code(s): K56.7 - Ileus, unspecified Status: Acute (3) Hypertension Code(s): I10 - Essential (primary) hypertension Status: Chronic (4) Hyperlipidemia Code(s): E78.5 - Hyperlipidemia, unspecified Status: Chronic (5) COPD (chronic obstructive pulmonary disease) Code(s): J44.9 - Chronic obstructive pulmonary disease, unspecified Status: Chronic <Minesh Butt - 09/05/18 13:09> (1) PAD (peripheral artery disease) Code(s): I73.9 - Peripheral vascular disease, unspecified Status: Acute (2) Ileus Code(s): K56.7 - Ileus, unspecified Status: Acute (3) Hypertension Code(s): I10 - Essential (primary) hypertension Status: Chronic (4) Hyperlipidemia Code(s): E78.5 - Hyperlipidemia, unspecified Status: Chronic (5) COPD (chronic obstructive pulmonary disease) Code(s): J44.9 - Chronic obstructive pulmonary disease, unspecified Status: Chronic <Abebe Jacobs - 09/04/18 23:46> - Assessment and Plan She is a 63-year-old female that is 7 days status post left femoral bypass surgery who presents with nausea, vomiting, inability to tolerate p.o. and increasing pain in the left lower extremity. Status post left femoral bypass surgery/peripheral artery disease: -Consult to Dr. Villanueva (vascular surgery) She is neurovascularly intact distal to the surgery and has palpable peripheral pulses Morphine pain scale (inability to tolerate p.o. pain meds) Continue home medications ASA 81 mg and Plavix 75 mg -Consult to physical therapy for evaluation and treatment of her mobility issues Chest pain: Her chest pain does not seem to be cardiac in nature and is most likely postsurgical pain. Her first troponin was 0.04. EKG showed marked T wave abnormalities, however these appear to be stable from her EKG on 08/26/18. Repeat troponin Continuous telemetry Chronic wounds of the left lower extremity: They do appear chronic, however they do appear to be healing. This improvement is likely secondary to her bypass. Consult to wound care Potential postoperative ileus: Her nausea and vomiting may be related to surgery , however they also may be related to a gastroenteritis. She also had some lactic acid elevation at 2.1, this is most likely due to her dehydration. -Liquid diet, advance as tolerated Reglan as needed nausea -Repeat lactic acid ordered COPD: She is not on any home medications DuoNeb every 6 hours as needed for shortness of breath Hypertension: Continue home medicine losartan 50 mg p.o. daily Hyperlipidemia: Continue home medication Lipitor 20 mg daily Fluids: LR at 84 cc/h Electrolytes: monitor and replete as needed Nutrition: Liquid/cardiac diet, advance as tolerated GI prophylaxis: not indicated VTE prophylaxis: Lovenox 40 mg SQ Disposition: She will likely need physical therapy services due to her recent surgical procedure upon discharge Patient was seen and examined with Dr. Quinones <Abebe Jacobs - 09/04/18 23:54> - Attending Attestation See the residents documentation for details. I saw and evaluated the patient regarding the morrison portions of this evaluation and agree with the residents findings and plans as written. Parts of this note were created using [employer] voice recognition software program. While efforts were made to correct any mistakes made by this software, some mistakes, errors, and omissions may remain in the final note that were not caught when the note was originally created. Plan of care was discussed and agreed upon with the patient as specifically documented in the above note. An opportunity to ask questions with explanation was provided. Patient voiced understanding on all information reviewed and discussed. <Minesh Butt - 09/05/18 13:09>
[2018-09-04] MEDS ORDERED: Acetaminophen 325 MG Tablet PO PRN (17:19)
[2018-09-04] MEDS ORDERED: Morphine Sulfate Inj 2 MG/ML Vial IV.PUSH PRN (17:32)
[2018-09-04] MEDS: Morphine Inj 4 MG/ML Vial IV.PUSH PRN (18:21)
[2018-09-04] MEDS: Gabapentin 300 MG Capsule PO SCH (18:53)
[2018-09-04] MEDS: Enoxaparin Inj 40 MG/0.4 ML Syringe SQ SCH (18:53)
[2018-09-05] MEDS: Morphine Inj 4 MG/ML Vial IV.PUSH PRN ×5 (00:11→20:57)
[2018-09-05] MEDS: Senna/Docusate Sodium 8.6/50 MG Tablet PO SCH ×3 (00:26→20:57)
[2018-09-05 06:58] LABS: Baso # (Auto) 0.1 th/mm3 (0.0-0.2); Eos # (Auto) 0.6 th/mm3 (0.0-0.4); Eos % (Auto) 10.4 % (0.0-4.0); Hematocrit 26.1 % (35.0-46.0); Hemoglobin 9.1 gm/dL (11.6-15.3); Lymph # (Auto) 1.2 th/mm3 (1.0-4.8); Lymph % (Auto) 19.7 % (9.0-44.0); Mean Corpuscular HGB Conc 34.6 % (32.0-36.0); Mean Corpuscular Hemoglobin 36.2 pg (27.0-34.0); Mean Corpuscular Volume 104.7 fL (80.0-100.0); Mean Platelet Volume 8.6 fL (7.0-11.0); Mono # (Auto) 1.1 th/mm3 (0.0-0.9); Mono % (Auto) 18.9 % (0.0-8.0); Platelet Count 359 th/mm3 (150-450); Red Cell Distribution Width 13.9 % (11.6-17.2); White Blood Count 6.1 th/mm3 (4.0-11.0)
[2018-09-05 07:29] LABS: Anion Gap 10 meq/L (5-15); Blood Urea Nitrogen 3 mg/dL (7-18); Calcium 8.1 mg/dL (8.5-10.1); Carbon Dioxide 23.9 meq/L (21.0-32.0); Chloride 103 meq/L (98-107); Glomerular Filtration Rate Greater Than 89 mL/min (>89); Glucose,Random 85 mg/dL (74-106); Potassium 3.2 meq/L (3.5-5.1); Sodium 137 meq/L (136-145)
[2018-09-05 07:45] LABS: Troponin I 0.04 ng/mL (0.02-0.05)
[2018-09-05] MEDS: Gabapentin 300 MG Capsule PO SCH ×3 (08:36→17:15)
--- NOTE | 2018-09-05 08:40 | P.PNVS ---
Subjective Subjective/Hospital Course: Patient is well-known to our service. Currently recovering from a left axillary to femoral artery bypass. She complains of left lower extremity swelling She denies any rest pain or claudication Objective Vital Signs / I&O: Vital Signs 09/04/18 12:41 09/04/18 13:29 09/04/18 18:16 Temperature 98.4 F Pulse Rate 83 86 79 Respiratory Rate 30 H 20 16 Blood Pressure 178/74 H 165/78 H 122/69 Pulse Oximetry 100 100 94 L 09/04/18 20:00 09/05/18 00:00 09/05/18 04:00 Temperature 98.3 F 100.5 F H 99.3 F Pulse Rate 85 99 H 83 Respiratory Rate 18 19 17 Blood Pressure 142/65 H 126/60 110/55 L Pulse Oximetry 97 95 95 09/05/18 06:30 Temperature Pulse Rate Respiratory Rate 19 Blood Pressure Pulse Oximetry Intake & Output 09/04/18 09/05/18 09/05/18 18:59 06:59 18:59 Intake Total 500 / 500 1480 / 1480 Balance 500 / 500 1480 / 1480 Weight 55.338 kg 56.8 kg Intake: IV 500 / 500 1000 / 1000 LR 1000 mL Inj 1,000 ML @ 84 1000 / 1000 mls/hr IV.CONT .[id number] [facility] Rx# :[id number] NS Inj 500 ML @ 1000 mls/hr IV. 500 / 500 SIG BOLUS [facility] Rx#:[id number] Oral 480 / 480 Other: # Voids 4 Date of Last Bowel Movement 09/04/18 Weight On Admission 56.8 kg Physical Exam: Left axillary wound, left groin wounds are clean dry intact Palpable left dorsalis pedis pulse +2 left lower extremity edema Laboratory Results - last 24 hr 09/04/18 09/04/18 09/04/18 13:00 13:00 13:00 WBC 8.0 RBC 2.71 L Hgb 10.0 L Hct 28.1 L MCV 103.8 H MCH 37.0 H MCHC 35.6 RDW 14.1 Plt Count 432 D MPV 8.5 Neut % (Auto) 54.7 Lymph % (Auto) 19.6 [place] % (Auto) 16.4 H Eos % (Auto) 8.1 H Baso % (Auto) 1.2 Neut # (Auto) 4.4 Lymph # (Auto) 1.6 [place] # (Auto) 1.3 H Eos # (Auto) 0.6 H Baso # (Auto) 0.1 WBC Differential . Differential Comment Auto diff final PT INR APTT Sodium 138 Potassium 4.5 Chloride 105 Carbon Dioxide 25.3 Anion Gap 8 BUN 5 L Creatinine 0.60 Estimated GFR Greater than 89 Random Glucose 99 Lactic Acid 2.1 H Calcium 8.6 Total Bilirubin 0.6 AST 26 ALT 27 Alkaline Phosphatase 65 Total Creatine Kinase CK-MB (CK-2) Troponin I Total Protein 6.5 Albumin 2.8 L 09/04/18 09/04/18 09/04/18 13:00 13:50 21:22 WBC RBC Hgb Hct MCV MCH MCHC RDW Plt Count MPV Neut % (Auto) Lymph % (Auto) [place] % (Auto) Eos % (Auto) Baso % (Auto) Neut # (Auto) Lymph # (Auto) [place] # (Auto) Eos # (Auto) Baso # (Auto) WBC Differential Differential Comment PT 12.9 H INR 1.3 APTT 21.5 L Sodium Potassium Chloride Carbon Dioxide Anion Gap BUN Creatinine Estimated GFR Random Glucose Lactic Acid Calcium Total Bilirubin AST ALT Alkaline Phosphatase Total Creatine Kinase 107 CK-MB (CK-2) 1.3 Troponin I 0.04 0.05 Total Protein Albumin 09/04/18 09/05/18 09/05/18 23:49 06:30 06:30 WBC 6.1 RBC 2.50 L Hgb 9.1 L Hct 26.1 L MCV 104.7 H MCH 36.2 H MCHC 34.6 RDW 13.9 Plt Count 359 MPV 8.6 Neut % (Auto) 50.0 Lymph % (Auto) 19.7 [place] % (Auto) 18.9 H Eos % (Auto) 10.4 H Baso % (Auto) 1.0 Neut # (Auto) 3.0 Lymph # (Auto) 1.2 [place] # (Auto) 1.1 H Eos # (Auto) 0.6 H Baso # (Auto) 0.1 WBC Differential . Differential Comment Auto diff final PT INR APTT Sodium 137 Potassium 3.2 L D Chloride 103 Carbon Dioxide 23.9 Anion Gap 10 BUN 3 L Creatinine 0.59 Estimated GFR Greater than 89 Random Glucose 85 Lactic Acid 0.8 Calcium 8.1 L Total Bilirubin AST ALT Alkaline Phosphatase Total Creatine Kinase CK-MB (CK-2) Troponin I 0.04 Total Protein Albumin Impressions Chest X-Ray 09/04/18 00:00 CONCLUSION: Minimal blunting of the right costophrenic angle characteristic of a small effusion. COPD No evidence of acute infiltrate or significant congestion. Chest CTA 09/04/18 13:35 CONCLUSION: 1. This study is negative for pulmonary embolism. 2. No evidence of acute cardiopulmonary process. 3. Left axillary bypass graft Venous Doppler Study 09/04/18 13:37 CONCLUSION: 1. No evidence of deep venous thrombosis. 2. Hematoma in the left groin. Abdomen/Pelvis CT 09/04/18 13:57 CONCLUSION: 1. Nonspecific, nonobstructive bowel gas pattern which may represent an ileus or gastroenteritis. 2. Postsurgical changes in the left inguinal region status post femoral bypass surgery with low density fluid collection which may represent a hematoma and/or seroma. 3. Unremarkable gallbladder. 4. Small right pleural effusion. Assessment and Plan - Assessment (1) Critical ischemia of lower extremity Code(s): I99.8 - Other disorder of circulatory system Status: Acute - Plan 1. Compression stocking to the left lower extremity 2. Patient is stable from vascular standpoint for discharge. Thank you for allowing us to participate in this patient care. They have any questions do not hesitate to call my cell phone Orlando Villanueva MD [phone]
--- NOTE | 2018-09-05 11:21 | P.PNFP ---
Subjective Interval history: Patient seen and examined today. No acute events overnight. Patient believes the swelling in her leg is slightly better. Denies nausea, vomiting, fever, chills, abdominal pain, chest pain, shortness of breath. No other acute complaints at this time. <IldaMikael - 09/05/18 12:28> Results - Labs Result diagrams: 09/05/18 06:30 09/05/18 06:30 <Minesh Butt - 09/05/18 13:19> Abnormal lab results 09/04/18 09/04/18 09/04/18 Range/Units 13:00 13:00 13:00 RBC 2.71 L (4.00-5.30) mil/mm3 Hgb 10.0 L (11.6-15.3) gm/dL Hct 28.1 L (35.0-46.0) % MCV 103.8 H (80.0-100.0) fL MCH 37.0 H (27.0-34.0) pg [place] % (Auto) 16.4 H (0.0-8.0) % Eos % (Auto) 8.1 H (0.0-4.0) % [place] # (Auto) 1.3 H (0.0-0.9) th/mm3 Eos # (Auto) 0.6 H (0.0-0.4) th/mm3 PT (9.8-11.6) sec APTT (23.4-31.7) sec Potassium (3.5-5.1) meq/L BUN 5 L (7-18) mg/dL Lactic Acid 2.1 H (0.4-2.0) mmol/L Calcium (8.5-10.1) mg/dL Albumin 2.8 L (3.4-5.0) g/dL 09/04/18 09/05/18 09/05/18 Range/Units 13:50 06:30 06:30 RBC 2.50 L (4.00-5.30) mil/mm3 Hgb 9.1 L (11.6-15.3) gm/dL Hct 26.1 L (35.0-46.0) % MCV 104.7 H (80.0-100.0) fL MCH 36.2 H (27.0-34.0) pg [place] % (Auto) 18.9 H (0.0-8.0) % Eos % (Auto) 10.4 H (0.0-4.0) % [place] # (Auto) 1.1 H (0.0-0.9) th/mm3 Eos # (Auto) 0.6 H (0.0-0.4) th/mm3 PT 12.9 H (9.8-11.6) sec APTT 21.5 L (23.4-31.7) sec Potassium 3.2 L D (3.5-5.1) meq/L BUN 3 L (7-18) mg/dL Lactic Acid (0.4-2.0) mmol/L Calcium 8.1 L (8.5-10.1) mg/dL Albumin (3.4-5.0) g/dL Short CBC 09/04/18 09/05/18 Range/Units 13:00 06:30 WBC 8.0 6.1 (4.0-11.0) th/mm3 Hgb 10.0 L 9.1 L (11.6-15.3) gm/dL Hct 28.1 L 26.1 L (35.0-46.0) % Plt Count 432 D 359 (150-450) th/mm3 BMP 09/04/18 09/05/18 13:00 06:30 Sodium 138 137 Potassium 4.5 3.2 L D Chloride 105 103 Carbon Dioxide 25.3 23.9 BUN 5 L 3 L Creatinine 0.60 0.59 Calcium 8.6 8.1 L Cardiac Enzymes 09/04/18 09/04/18 09/05/18 Range/Units 13:00 21:22 06:30 Total Creatine Kinase 107 (26-192) U/L CK-MB (CK-2) 1.3 (0.5-3.6) ng/mL Troponin I 0.04 0.05 0.04 (0.02-0.05) ng/mL Liver Function 09/04/18 Range/Units 13:00 Total Bilirubin 0.6 (0.2-1.0) mg/dL AST 26 (15-37) U/L ALT 27 (10-53) U/L Alkaline Phosphatase 65 (45-117) U/L Albumin 2.8 L (3.4-5.0) g/dL <Butt,Minesh - 09/05/18 13:19> Abnormal lab results 09/04/18 09/04/18 09/04/18 Range/Units 13:00 13:00 13:00 RBC 2.71 L (4.00-5.30) mil/mm3 Hgb 10.0 L (11.6-15.3) gm/dL Hct 28.1 L (35.0-46.0) % MCV 103.8 H (80.0-100.0) fL MCH 37.0 H (27.0-34.0) pg [place] % (Auto) 16.4 H (0.0-8.0) % Eos % (Auto) 8.1 H (0.0-4.0) % [place] # (Auto) 1.3 H (0.0-0.9) th/mm3 Eos # (Auto) 0.6 H (0.0-0.4) th/mm3 PT (9.8-11.6) sec APTT (23.4-31.7) sec Potassium (3.5-5.1) meq/L BUN 5 L (7-18) mg/dL Lactic Acid 2.1 H (0.4-2.0) mmol/L Calcium (8.5-10.1) mg/dL Albumin 2.8 L (3.4-5.0) g/dL 09/04/18 09/05/18 09/05/18 Range/Units 13:50 06:30 06:30 RBC 2.50 L (4.00-5.30) mil/mm3 Hgb 9.1 L (11.6-15.3) gm/dL Hct 26.1 L (35.0-46.0) % MCV 104.7 H (80.0-100.0) fL MCH 36.2 H (27.0-34.0) pg [place] % (Auto) 18.9 H (0.0-8.0) % Eos % (Auto) 10.4 H (0.0-4.0) % [place] # (Auto) 1.1 H (0.0-0.9) th/mm3 Eos # (Auto) 0.6 H (0.0-0.4) th/mm3 PT 12.9 H (9.8-11.6) sec APTT 21.5 L (23.4-31.7) sec Potassium 3.2 L D (3.5-5.1) meq/L BUN 3 L (7-18) mg/dL Lactic Acid (0.4-2.0) mmol/L Calcium 8.1 L (8.5-10.1) mg/dL Albumin (3.4-5.0) g/dL Short CBC 09/04/18 09/05/18 Range/Units 13:00 06:30 WBC 8.0 6.1 (4.0-11.0) th/mm3 Hgb 10.0 L 9.1 L (11.6-15.3) gm/dL Hct 28.1 L 26.1 L (35.0-46.0) % Plt Count 432 D 359 (150-450) th/mm3 BMP 09/04/18 09/05/18 13:00 06:30 Sodium 138 137 Potassium 4.5 3.2 L D Chloride 105 103 Carbon Dioxide 25.3 23.9 BUN 5 L 3 L Creatinine 0.60 0.59 Calcium 8.6 8.1 L Cardiac Enzymes 09/04/18 09/04/18 09/05/18 Range/Units 13:00 21:22 06:30 Total Creatine Kinase 107 (26-192) U/L CK-MB (CK-2) 1.3 (0.5-3.6) ng/mL Troponin I 0.04 0.05 0.04 (0.02-0.05) ng/mL Liver Function 09/04/18 Range/Units 13:00 Total Bilirubin 0.6 (0.2-1.0) mg/dL AST 26 (15-37) U/L ALT 27 (10-53) U/L Alkaline Phosphatase 65 (45-117) U/L Albumin 2.8 L (3.4-5.0) g/dL <Orlando Gonsales - 09/05/18 11:21> - Imaging Impressions Chest X-Ray 09/04/18 00:00 CONCLUSION: Minimal blunting of the right costophrenic angle characteristic of a small effusion. COPD No evidence of acute infiltrate or significant congestion. Chest CTA 09/04/18 13:35 CONCLUSION: 1. This study is negative for pulmonary embolism. 2. No evidence of acute cardiopulmonary process. 3. Left axillary bypass graft Venous Doppler Study 09/04/18 13:37 CONCLUSION: 1. No evidence of deep venous thrombosis. 2. Hematoma in the left groin. Abdomen/Pelvis CT 09/04/18 13:57 CONCLUSION: 1. Nonspecific, nonobstructive bowel gas pattern which may represent an ileus or gastroenteritis. 2. Postsurgical changes in the left inguinal region status post femoral bypass surgery with low density fluid collection which may represent a hematoma and/or seroma. 3. Unremarkable gallbladder. 4. Small right pleural effusion. <Minesh Butt - 09/05/18 13:19> Impressions Chest X-Ray 09/04/18 00:00 CONCLUSION: Minimal blunting of the right costophrenic angle characteristic of a small effusion. COPD No evidence of acute infiltrate or significant congestion. Chest CTA 09/04/18 13:35 CONCLUSION: 1. This study is negative for pulmonary embolism. 2. No evidence of acute cardiopulmonary process. 3. Left axillary bypass graft Venous Doppler Study 09/04/18 13:37 CONCLUSION: 1. No evidence of deep venous thrombosis. 2. Hematoma in the left groin. Abdomen/Pelvis CT 09/04/18 13:57 CONCLUSION: 1. Nonspecific, nonobstructive bowel gas pattern which may represent an ileus or gastroenteritis. 2. Postsurgical changes in the left inguinal region status post femoral bypass surgery with low density fluid collection which may represent a hematoma and/or seroma. 3. Unremarkable gallbladder. 4. Small right pleural effusion. <Orlando Gonsales - 09/05/18 11:21> Physical Exam Vital signs: Vital Signs 09/04/18 13:29 09/04/18 18:16 09/04/18 20:00 Temperature 98.3 F Pulse Rate 86 79 85 Respiratory Rate 20 16 18 Blood Pressure 165/78 H 122/69 142/65 H Pulse Oximetry 100 94 L 97 09/05/18 00:00 09/05/18 04:00 09/05/18 06:30 Temperature 100.5 F H 99.3 F Pulse Rate 99 H 83 Respiratory Rate 19 17 19 Blood Pressure 126/60 110/55 L Pulse Oximetry 95 95 09/05/18 08:00 09/05/18 08:20 09/05/18 12:00 Temperature 97.9 F 98.1 F Pulse Rate 76 81 66 Respiratory Rate 17 17 Blood Pressure 114/56 L 138/62 Pulse Oximetry 99 100 Intake & Output 09/04/18 09/05/18 09/05/18 18:59 06:59 18:59 Intake Total 500 / 500 1480 / 1480 1000 / 1000 Balance 500 / 500 1480 / 1480 1000 / 1000 Weight 55.338 kg 56.8 kg Intake: IV 500 / 500 1000 / 1000 1000 / 1000 LR 1000 mL Inj 1,000 ML @ 84 1000 / 1000 1000 / 1000 mls/hr IV.CONT .[id number] [facility] Rx# :[id number] NS Inj 500 ML @ 1000 mls/hr IV. 500 / 500 SIG BOLUS [facility] Rx#:[id number] Oral 480 / 480 Other: # Voids 4 Date of Last Bowel Movement 09/04/18 09/04/18 Weight On Admission 56.8 kg <Minesh Butt - 09/05/18 13:19> Vital Signs 09/04/18 12:41 09/04/18 13:29 09/04/18 18:16 Temperature 98.4 F Pulse Rate 83 86 79 Respiratory Rate 30 H 20 16 Blood Pressure 178/74 H 165/78 H 122/69 Pulse Oximetry 100 100 94 L 09/04/18 20:00 09/05/18 00:00 09/05/18 04:00 Temperature 98.3 F 100.5 F H 99.3 F Pulse Rate 85 99 H 83 Respiratory Rate 18 19 17 Blood Pressure 142/65 H 126/60 110/55 L Pulse Oximetry 97 95 95 09/05/18 06:30 09/05/18 08:00 09/05/18 08:20 Temperature 97.9 F Pulse Rate 76 81 Respiratory Rate 19 17 Blood Pressure 114/56 L Pulse Oximetry 99 Intake & Output 09/04/18 09/05/18 09/05/18 18:59 06:59 18:59 Intake Total 500 / 500 1480 / 1480 Balance 500 / 500 1480 / 1480 Weight 55.338 kg 56.8 kg Intake: IV 500 / 500 1000 / 1000 LR 1000 mL Inj 1,000 ML @ 84 1000 / 1000 mls/hr IV.CONT .[id number] [facility] Rx# :[id number] NS Inj 500 ML @ 1000 mls/hr IV. 500 / 500 SIG BOLUS [facility] Rx#:[id number] Oral 480 / 480 Other: # Voids 4 Date of Last Bowel Movement 09/04/18 09/04/18 Weight On Admission 56.8 kg <Orlando Gonsales - 09/05/18 11:21> Narrative: General: Well-developed, alert, and in no acute distress. Appears stated age HEENT: Atraumatic, PERRL, non-icteric sclera and no conjunctival injection, moist mucous membranes Neck: Supple, trachea midline Cardiac: Regular rate and rhythm with 2 out of 6 systolic murmur Pulmonary: Non-labored breathing. Lungs clear to auscultation bilaterally with good air movement and without wheeze Abdomen: Normal bowel sounds, soft and non-tender without rebound or guarding Extremities: 2+ pitting edema of the left foot and pitting edema to the left knee. 2+ posterior tibial and dorsalis pedis pulses. There are 2 circular 2 cm wounds that appear chronic to the left richards. Sensation is intact and all movements are grossly intact. Strength and full ROM testing is unable to be performed due to pain. <Orlando Gonsales - 09/05/18 12:28> Assessment and Plan - Assessment (1) PAD (peripheral artery disease) Code(s): I73.9 - Peripheral vascular disease, unspecified Status: Acute (2) Ileus Code(s): K56.7 - Ileus, unspecified Status: Acute (3) Hypertension Code(s): I10 - Essential (primary) hypertension Status: Chronic (4) Hyperlipidemia Code(s): E78.5 - Hyperlipidemia, unspecified Status: Chronic (5) COPD (chronic obstructive pulmonary disease) Code(s): J44.9 - Chronic obstructive pulmonary disease, unspecified Status: Chronic <Minesh Butt - 09/05/18 13:19> (1) PAD (peripheral artery disease) Code(s): I73.9 - Peripheral vascular disease, unspecified Status: Acute (2) Ileus Code(s): K56.7 - Ileus, unspecified Status: Acute (3) Hypertension Code(s): I10 - Essential (primary) hypertension Status: Chronic (4) Hyperlipidemia Code(s): E78.5 - Hyperlipidemia, unspecified Status: Chronic (5) COPD (chronic obstructive pulmonary disease) Code(s): J44.9 - Chronic obstructive pulmonary disease, unspecified Status: Chronic <Orlando Gonsales - 09/05/18 12:01> - Assessment and Plan She is a 63-year-old female that is 7 days status post left femoral bypass surgery who presents with nausea, vomiting, inability to tolerate p.o. and increasing pain in the left lower extremity. Status post left femoral bypass surgery/peripheral artery disease: -Consult to Dr. Villanueva (vascular surgery) * Compression stocking to left lower extremity * Stable from a vascular standpoint for discharge She is neurovascularly intact distal to the surgery and has palpable peripheral pulses Morphine pain scale (inability to tolerate p.o. pain meds) Continue home medications ASA 81 mg and Plavix 75 mg -Consult to physical therapy for evaluation and treatment of her mobility issues Chest pain: Her chest pain does not seem to be cardiac in nature and is most likely postsurgical pain. Her first troponin was 0.04. EKG showed marked T wave abnormalities, however these appear to be stable from her EKG on 08/26/18. Repeat troponin .04 Continuous telemetry Chronic wounds of the left lower extremity: They do appear chronic, however they do appear to be healing. This improvement is likely secondary to her bypass. Consult to wound care Potential postoperative ileus: Her nausea and vomiting may be related to surgery , however they also may be related to a gastroenteritis. She also had some lactic acid elevation at 2.1, this is most likely due to her dehydration. -Liquid diet, advance as tolerated Reglan as needed nausea -Repeat lactic acid ordered COPD: She is not on any home medications DuoNeb every 6 hours as needed for shortness of breath Hypertension: Continue home medicine losartan 50 mg p.o. daily Hyperlipidemia: Continue home medication Lipitor 20 mg daily Fluids: LR at 84 cc/h Electrolytes: monitor and replete as needed Nutrition: Liquid/cardiac diet, advance as tolerated GI prophylaxis: not indicated VTE prophylaxis: Lovenox 40 mg SQ Disposition: She will likely need physical therapy services due to her recent surgical procedure upon discharge <Orlando Gonsales - 09/05/18 12:28> - Attending Attestation See the residents documentation for details. I saw and evaluated the patient regarding the morrison portions of this evaluation and agree with the residents findings and plans as written. Parts of this note were created using [employer] voice recognition software program. While efforts were made to correct any mistakes made by this software, some mistakes, errors, and omissions may remain in the final note that were not caught when the note was originally created. Plan of care was discussed and agreed upon with the patient as specifically documented in the above note. An opportunity to ask questions with explanation was provided. Patient voiced understanding on all information reviewed and discussed. <Minesh Butt - 09/05/18 13:19>
--- NOTE | 2018-09-05 13:06 | P.CONCA ---
History of Present Illness Service: Cardiology Consult date: 09/05/18 Requesting Physician: Abebe Jacobs Reason for Consult: Mildly elevated troponin levels Primary Care Provider: Kelly Bajwa Chief Complaint: Left lower extremity pain History of Present Illness: This is a 63-year-old female with a past medical history of peripheral artery disease, COPD, left-sided femoral endarterectomy, patch angioplasty and axillary to femoral bypass on 08-28-18. She was discharged home 4 days post op and has continually had difficulty ambulating around the house. She also states, increased swelling in the left lower extremity and intermitted chest pain located on the left upper chest near the surgical incision site. She describes the pain as a sharp intermitted pain that comes and goes without radiation. Due to the swelling, difficulty getting around and the left sided chest pain, she decided to come to the Emergency Department for further evaluation. Currently, she denies any CP, pressure, palpitations, dizziness, edema or SOB. She does complain of pain in the left groin at the incision site. Review of Systems All other systems reviewed negative except as stated in HPI [facility] - History History Provided By: Patient - Medical History Medical History: Medical History (Last Reviewed 09/05/18 @ 08:16 by Iraida Clarke) COPD (chronic obstructive pulmonary disease) Herniated disc High cholesterol Hypertension Peripheral arterial disease Sciatic leg pain - Surgical History Surgical History: Surgical History (Last Reviewed 09/05/18 @ 08:16 by Iraida Clarke) H/O hand surgery H/O tubal ligation - Tobacco History Second Hand Smoke Exposure: Yes Tobacco Use In Past 30 Days: Yes Smoking Status: Former smoker Tobacco Type: Cigarettes - Alcohol History How Often Do You Have a Drink Containing Alcohol: 2 to 3 times a week - Substance Use History Substance History: No History of Abuse - Travel History Recent Travel in the [place] Within the Last 8 Weeks: No Recent Travel Out of the Country Within the Last 8 Weeks: No - Immunization History Tetanus Immunization: Unsure Hx Influenza Vaccine This Season: Yes Medications and Allergies Allergies Allergy/AdvReac Type Severity Reaction Status Date / Time acetaminophen Allergy Severe Hives, Verified 09/04/18 12:45 diff Breathing,itching codeine Allergy Severe Hives, Verified 09/04/18 12:45 diff Breathing,itching Home Medications Medication Instructions Recorded Confirmed Type gabapentin 300 mg PO TID 08/16/18 09/04/18 History atorvastatin 20 mg PO DAILY 08/26/18 09/04/18 History fluticasone [Flonase Allergy 2 spray INTRANASAL DAILY 08/26/18 09/04/18 History Relief] losartan 50 mg PO DAILY 08/26/18 09/04/18 History vitamin [id number] acid 1 tab PO DAILY 08/26/18 09/04/18 History Active Medications: Active Medications Al Hydroxide/Mg Hydroxide (Milk Of Osorio Caldwell) 30 ml PO Q12H PRN PRN Reason: Mild Constipation Albuterol (Duoneb Neb (Prn)) 1 ampul NEB Q6HR NEB PRN PRN Reason: SHORTNESS OF BREATH Aspirin (Aspirin Chew) 81 mg PO DAILY [facility] Last Admin: 09/05/18 08:38 Dose: 81 mg Atorvastatin Calcium (Lipitor) 20 mg PO DAILY [facility] Last Admin: 09/05/18 08:37 Dose: 20 mg Clopidogrel Bisulfate (Plavix) 75 mg PO DAILY [facility] Last Admin: 09/05/18 08:37 Dose: 75 mg Enoxaparin Sodium (Lovenox Inj) 40 mg SQ Q24H [facility] Last Admin: 09/04/18 18:53 Dose: 40 mg Fluticasone Propionate (Flonase Nasal [place]) 2 spray EACH NARE DAILY [facility] Last Admin: 09/05/18 08:40 Dose: 2 spray Gabapentin (Neurontin) 300 mg PO TID [facility] Last Admin: 09/05/18 08:36 Dose: 300 mg Lactated Ringer's (Lr 1000 Ml Inj) 1,000 mls @ 84 mls/hr IV.CONT .[id number] [facility] Last Admin: 09/05/18 07:07 Dose: Not Given Losartan Potassium (Cozaar) 50 mg PO DAILY [facility] Last Admin: 09/05/18 08:37 Dose: 50 mg Metoclopramide HCl (Reglan Inj) 5 mg IV.PUSH Q6HR PRN; Protocol PRN Reason: NAUSEA OR VOMITING Morphine Sulfate (Morphine Inj) 4 mg IV.PUSH Q4H PRN PRN Reason: pain scale 6-10 Last Admin: 09/05/18 10:33 Dose: 4 mg Morphine Sulfate (Morphine Inj) 2 mg IV.PUSH Q4H PRN PRN Reason: Pain scale 3-5 Senna/Docusate Sodium (Roseann-Colace) 1 tab PO BID [facility] Last Admin: 09/05/18 08:37 Dose: 1 tab Sodium Chloride (Ns Flush) 2 ml IV.FLUSH BID [facility] Last Admin: 09/05/18 08:38 Dose: 2 ml Sodium Chloride (Ns Flush) 2 ml IV.FLUSH PRN PRN PRN Reason: FLUSH AFTER USING IV ACCESS Exam Vital signs: Vital Signs 09/04/18 13:29 09/04/18 18:16 09/04/18 20:00 Temperature 98.3 F Pulse Rate 86 79 85 Respiratory Rate 20 16 18 Blood Pressure 165/78 H 122/69 142/65 H Pulse Oximetry 100 94 L 97 09/05/18 00:00 09/05/18 04:00 09/05/18 06:30 Temperature 100.5 F H 99.3 F Pulse Rate 99 H 83 Respiratory Rate 19 17 19 Blood Pressure 126/60 110/55 L Pulse Oximetry 95 95 09/05/18 08:00 09/05/18 08:20 Temperature 97.9 F Pulse Rate 76 81 Respiratory Rate 17 Blood Pressure 114/56 L Pulse Oximetry 99 Intake & Output 09/04/18 09/05/18 09/05/18 18:59 06:59 18:59 Intake Total 500 / 500 1480 / 1480 Balance 500 / 500 1480 / 1480 Weight 55.338 kg 56.8 kg Intake: IV 500 / 500 1000 / 1000 LR 1000 mL Inj 1,000 ML @ 84 1000 / 1000 mls/hr IV.CONT .[id number] [facility] Rx# :[id number] NS Inj 500 ML @ 1000 mls/hr IV. 500 / 500 SIG BOLUS SHANW Rx#:[id number] Oral 480 / 480 Other: # Voids 4 Date of Last Bowel Movement 09/04/18 09/04/18 Weight On Admission 56.8 kg - Constitutional no acute distress - Routine HEENT Exam Head: Present: normocephalic Eye: Present: PERRL ENT: Present: mucous membranes moist - Routine Neck Exam Present: supple - Routine Respiratory Exam Present: crackles Comments: fine crackles noted bilateral lower lobes - Routine Cardiovascular Exam Present: S1, S2. Absent: murmur, gallop, rubs - Routine Abdominal Exam Present: normoactive bowel sounds - Routine Extremities Exam Present: edema, pulses intact, normal capillary refill. Absent: cyanosis, clubbing Comments: left leg has increased swelling and is warm to touch. - Routine Skin Exam Present: intact Comments: Left upper chest, left lateral chest below the breast and left groin surgical incisions. All D&I without signs of infection. - Routine Neurological Exam Present: oriented X3 Results 09/05/18 15:30 09/05/18 15:30 Cardiac Enzymes 09/04/18 09/04/18 09/04/18 Range/Units 13:00 13:00 21:22 AST 26 (15-37) U/L CK-MB (CK-2) 1.3 (0.5-3.6) ng/mL Troponin I 0.04 0.05 (0.02-0.05) ng/mL 09/05/18 Range/Units 06:30 AST (15-37) U/L CK-MB (CK-2) (0.5-3.6) ng/mL Troponin I 0.04 (0.02-0.05) ng/mL Coagulation 09/04/18 Range/Units 13:50 PT 12.9 H (9.8-11.6) sec APTT 21.5 L (23.4-31.7) sec CBC 09/04/18 09/05/18 Range/Units 13:00 06:30 WBC 8.0 6.1 (4.0-11.0) th/mm3 RBC 2.71 L 2.50 L (4.00-5.30) mil/mm3 Hgb 10.0 L 9.1 L (11.6-15.3) gm/dL Hct 28.1 L 26.1 L (35.0-46.0) % Plt Count 432 D 359 (150-450) th/mm3 Neut # (Auto) 4.4 3.0 (1.8-7.7) th/mm3 Lymph # (Auto) 1.6 1.2 (1.0-4.8) th/mm3 Mitchell # (Auto) 1.3 H 1.1 H (0.0-0.9) th/mm3 Eos # (Auto) 0.6 H 0.6 H (0.0-0.4) th/mm3 Baso # (Auto) 0.1 0.1 (0.0-0.2) th/mm3 Comprehensive Metabolic Panel 09/04/18 09/05/18 Range/Units 13:00 06:30 Sodium 138 137 (136-145) meq/L Potassium 4.5 3.2 L D (3.5-5.1) meq/L Chloride 105 103 (98-107) meq/L Carbon Dioxide 25.3 23.9 (21.0-32.0) meq/L BUN 5 L 3 L (7-18) mg/dL Creatinine 0.60 0.59 (0.50-1.00) mg/dL Calcium 8.6 8.1 L (8.5-10.1) mg/dL AST 26 (15-37) U/L ALT 27 (10-53) U/L Alkaline Phosphatase 65 (45-117) U/L Total Protein 6.5 (6.4-8.2) g/dL Albumin 2.8 L (3.4-5.0) g/dL Intake and Output 09/04/18 09/05/18 09/05/18 22:59 06:59 14:59 Intake Total 1480 / 1480 Balance 1480 / 1480 Intake: IV 1000 / 1000 LR 1000 mL Inj 1,000 ML @ 84 1000 / 1000 mls/hr IV.CONT .[id number] [facility] Rx# :[id number] Oral 480 / 480 Other: # Voids 4 Date of Last Bowel Movement 09/04/18 09/04/18 Weight 56.8 kg 56.8 kg Weight On Admission 56.8 kg - Imaging and Cardiology Imaging: Impressions Chest X-Ray 09/04/18 00:00 CONCLUSION: Minimal blunting of the right costophrenic angle characteristic of a small effusion. COPD No evidence of acute infiltrate or significant congestion. Chest CTA 09/04/18 13:35 CONCLUSION: 1. This study is negative for pulmonary embolism. 2. No evidence of acute cardiopulmonary process. 3. Left axillary bypass graft Venous Doppler Study 09/04/18 13:37 CONCLUSION: 1. No evidence of deep venous thrombosis. 2. Hematoma in the left groin. Abdomen/Pelvis CT 09/04/18 13:57 CONCLUSION: 1. Nonspecific, nonobstructive bowel gas pattern which may represent an ileus or gastroenteritis. 2. Postsurgical changes in the left inguinal region status post femoral bypass surgery with low density fluid collection which may represent a hematoma and/or seroma. 3. Unremarkable gallbladder. 4. Small right pleural effusion. Assessment and Plan - Assessment (1) PAD (peripheral artery disease) Code(s): I73.9 - Peripheral vascular disease, unspecified Status: Acute (2) Elevated troponin level Code(s): R74.8 - Abnormal levels of other serum enzymes Status: Acute (3) Hypertension Code(s): I10 - Essential (primary) hypertension Status: Chronic (4) Hyperlipidemia Code(s): E78.5 - Hyperlipidemia, unspecified Status: Chronic (5) COPD (chronic obstructive pulmonary disease) Code(s): J44.9 - Chronic obstructive pulmonary disease, unspecified Status: Chronic (6) Critical ischemia of lower extremity Code(s): I99.8 - Other disorder of circulatory system Status: Acute - Plan Troponin levels are mildly elevated but not trending up. We will continue to monitor. Increased swelling in the left lower extremity, s/p femoral bypass, vascular evaluation in progress. Patient has wound to the left lower extremity, wound care evaluation in progress. We will continue to monitor the patient during her hospitalization. The patient was seen and evaluated by Dr. Lester who participated in care, management and decision making. - Attending Attestation Patient seen and examined. I reviewed and agree with the evaluation and plan as presented. No evidence of ACS. Continue monitoring.
--- NOTE | 2018-09-05 15:05 | P.PNWCN ---
Wound Care Nurse Consult Description: Received consult for wound management of LLE from Doctor Jacobs Communicated with: Spoke with OSIRIS Ruiz and Call placed to Doctor Joseph for orders Recommendation: Please leave Versatel one dressings in place for up to 7 days on L lower extremity and change every 7 days or needed if saturated or dislodged. Secure with Lauren hose Wound/Pressure Injury - Wound Left Upper Giles Wound Assessment: Ongoing Wound Type: Traumatic Wound Is This a Chronic Wound: No Requested from Provider a Wound Care Consult: Yes (Wound care saw patient today) Length (cm): 1 Width (cm): 0.5 Depth (cm): 0.1 (~0.1cm) Wound Bed Appearance: [place] Wound Bed Appearance: Wound bed is dry with 100% pink tissue Surrounding Tissue Appearance: Blanched/Dull Surrounding Tissue Temperature: Cool Drainage Amount: None Drainage Odor: No Odor Dressing Status: Changed Cleansing Solution: Saline Cover Dressing: Versatel one Wound Dressing Change Date: 09/05/18 Wound Margin Description: wound margins are well defined Left Lower Giles Wound Assessment: Ongoing Wound Type: Traumatic Wound Is This a Chronic Wound: No Requested from Provider a Wound Care Consult: Yes (Patient seen today by wound care inpatient) Length (cm): 1.2 Width (cm): 0.6 Depth (cm): 0.1 Wound Bed Appearance: [place], Yellow Wound Bed Appearance: Wound presents with ~50% pink tissue and ~50% dried yellow exudate Surrounding Tissue Appearance: Blanched/Dull Surrounding Tissue Temperature: Cool Drainage Amount: None Drainage Odor: No Odor Dressing Status: Changed Cleansing Solution: Saline Cover Dressing: Versatel one Wound Dressing Change Date: 09/05/18 Wound Margin Description: Well defined - Additional Information Patient seen on for wound management of LLE. Patient is being seen by vascular surgery for recent revascularization L leg. Lauren hose were pulled down to reveal to shallow healing wounds to the L giles.Patient does complain with lauren hose rub wounds. Wounds have no drainage, odor and are dry. Wounds were cleansed with normal saline and patted dry. Apply Versatel one over wounds secured dressings with Lauren hose. Lauren hose were pulled back up. Patient tolerated dressing change and wound assessment well.
[2018-09-05 16:03] LABS: Hematocrit 23.1 % (35.0-46.0); Mean Corpuscular HGB Conc 34.6 % (32.0-36.0); Mean Platelet Volume 8.3 fL (7.0-11.0); Platelet Count 342 th/mm3 (150-450); Red Blood Count 2.22 mil/mm3 (4.00-5.30); Red Cell Distribution Width 13.8 % (11.6-17.2); White Blood Count 6.2 th/mm3 (4.0-11.0)
--- NOTE | 2018-09-05 16:17 | ECG ---
Date Performed: 09/04/2018 Time Performed: 12:52:15 PTAGE: 63 years EKG: Sinus rhythm T-WAVE ABNORMALITY, CONSIDER ANTEROLATERAL AND INFERIOR ISCHEMIA ABNORMAL ECG PREVIOUS TRACING : 08/26/2018 13.33 No significant change from previous tracing noted. DOCTOR: Hamzah Pathak Interpretating Date/Time 09/05/2018 16:16:15
[2018-09-05 16:34] LABS: Carbon Dioxide 27.9 meq/L (21.0-32.0); Potassium 3.5 meq/L (3.5-5.1)
[2018-09-05] MEDS: Enoxaparin Inj 40 MG/0.4 ML Syringe SQ SCH (17:16)
--- NOTE | 2018-09-05 17:58 | US ---
EXAM DATE: 09/05/2018 5:45 PM EST AGE/SEX: 63 years / Female INDICATIONS: Hematoma. CLINICAL DATA: This is the patient's subsequent encounter. Patient reports that signs and symptoms h ave been present for 3 days and indicates a pain score of 1/10. MEDICAL/SURGICAL HISTORY: Chronic obstructive pulmonary disease. Hypercholesterolemia. Hypert ension. Herniated disc. Peripheral arterial disease. Tubal ligation. Hand surgery. COMPARISON: No prior exams available for comparison. TECHNIQUE: Abreu-scale and color Doppler imaging of the inguinal region was performed. FINDINGS: Vascular: The vascular structures are patent at the level of the groin. Other: There is a complex fluid collection in the left groin measuring 4.5 x 3.8 x 2.4 cm suggestive of a focal hematoma. There is no internal flow. There is also a benign-appearing lymph node in the l eft groin measuring 4.2 x 2.5 cm. There is a central fatty hilum present. CONCLUSION: 1. There is a complex fluid collection in the left groin measuring 4.5 x 3.8 cm suggestive of a foca l hematoma. 2. No internal flow is demonstrated. Electronically signed by: Juni Quezada MD Board Certified Radiologist 09/05/2018 5:57 PM EST
[2018-09-05 22:03] LABS: Hemoglobin 8.6 gm/dL (11.6-15.3)
[2018-09-06] MEDS: Morphine Inj 4 MG/ML Vial IV.PUSH PRN ×2 (01:31→06:45)
[2018-09-06 03:31] LABS: Hematocrit 25.4 % (35.0-46.0); Hemoglobin 8.9 gm/dL (11.6-15.3); Mean Corpuscular Volume 102.8 fL (80.0-100.0); Mean Platelet Volume 8.5 fL (7.0-11.0); Platelet Count 405 th/mm3 (150-450); Red Blood Count 2.47 mil/mm3 (4.00-5.30); Red Cell Distribution Width 13.9 % (11.6-17.2); White Blood Count 6.3 th/mm3 (4.0-11.0)
[2018-09-06 03:58] LABS: Anion Gap 6 meq/L (5-15); Blood Urea Nitrogen 3 mg/dL (7-18); Carbon Dioxide 28.3 meq/L (21.0-32.0); Chloride 105 meq/L (98-107); Glomerular Filtration Rate Greater Than 89 mL/min (>89); Glucose,Random 97 mg/dL (74-106); Potassium 3.6 meq/L (3.5-5.1); Sodium 139 meq/L (136-145)
[2018-09-06 08:49] VITALS: BP 162/71; RESP 20; TEMP 97.7
[2018-09-06] MEDS: Gabapentin 300 MG Capsule PO SCH ×2 (09:14→12:10)
[2018-09-06] MEDS: Senna/Docusate Sodium 8.6/50 MG Tablet PO SCH (09:14)
[2018-09-06 10:09] VITALS: PULSE 72
[2018-09-06 10:11] VITALS: O2SAT 100
--- NOTE | 2018-09-06 10:35 | P.PNFP ---
Subjective Interval history: Patient seen and examined today. Patient reports that she took off her compression stocking for the night, woke up to increased swelling in her leg this morning. Notes pain in her ankle and foot. Still able to move foot, wiggle toes. No cold sensation, significant numbness. Denies nausea, vomiting, fever, chills, abdominal pain, chest pain, shortness of breath, lightheadedness, dizziness. No other complaints today. Spoke with Dr. Villanueva, swelling will likely take several weeks to improve. <Orlando Gonsales - 09/06/18 10:35> Results - Labs Result diagrams: 09/06/18 03:20 09/06/18 03:20 <Minesh Butt - 09/08/18 12:50> Abnormal lab results 09/05/18 09/05/18 09/05/18 Range/Units 15:30 15:30 21:33 RBC 2.22 L (4.00-5.30) mil/mm3 Hgb 8.0 L 8.6 L (11.6-15.3) gm/dL Hct 23.1 L 25.0 L (35.0-46.0) % MCV 104.0 H (80.0-100.0) fL MCH 36.0 H (27.0-34.0) pg BUN 3 L (7-18) mg/dL Estimated GFR 88 L (>89) mL/min Calcium 8.0 L (8.5-10.1) mg/dL 09/06/18 09/06/18 Range/Units 03:20 03:20 RBC 2.47 L (4.00-5.30) mil/mm3 Hgb 8.9 L (11.6-15.3) gm/dL Hct 25.4 L (35.0-46.0) % MCV 102.8 H (80.0-100.0) fL MCH 36.0 H (27.0-34.0) pg BUN 3 L (7-18) mg/dL Estimated GFR (>89) mL/min Calcium 8.0 L (8.5-10.1) mg/dL Short CBC 09/05/18 09/05/18 09/06/18 Range/Units 15:30 21:33 03:20 WBC 6.2 6.3 (4.0-11.0) th/mm3 Hgb 8.0 L 8.6 L 8.9 L (11.6-15.3) gm/dL Hct 23.1 L 25.0 L 25.4 L (35.0-46.0) % Plt Count 342 405 (150-450) th/mm3 BMP 09/05/18 09/06/18 15:30 03:20 Sodium 137 139 Potassium 3.5 3.6 Chloride 103 105 Carbon Dioxide 27.9 28.3 BUN 3 L 3 L Creatinine 0.68 0.59 Calcium 8.0 L 8.0 L <Orlando Gonsales - 09/06/18 10:35> - Imaging Impressions Lower Extremity Ultrasound 09/05/18 00:00 CONCLUSION: 1. There is a complex fluid collection in the left groin measuring 4.5 x 3.8 cm suggestive of a focal hematoma. 2. No internal flow is demonstrated. <Orlando Gonsales - 09/06/18 10:35> Physical Exam Vital signs: Vital Signs 09/05/18 12:00 09/05/18 15:38 09/05/18 16:00 Temperature 98.1 F 98.0 F Pulse Rate 70 78 Respiratory Rate 17 17 Blood Pressure 138/62 116/55 L Pulse Oximetry 100 97 99 09/05/18 20:00 09/05/18 23:20 09/06/18 00:00 Temperature 99.1 F 98.8 F Pulse Rate 79 73 Respiratory Rate 17 17 18 Blood Pressure 98/50 L 104/50 L Pulse Oximetry 94 L 92 L 09/06/18 04:00 09/06/18 08:00 09/06/18 10:10 Temperature 98.4 F 97.7 F Pulse Rate 73 72 Respiratory Rate 18 20 Blood Pressure 118/55 L 162/71 H Pulse Oximetry 100 93 L 100 Intake & Output 09/05/18 09/06/18 09/06/18 18:59 06:59 18:59 Intake Total 1600 / 1600 480 / 480 Output Total 550 / 550 Balance 1600 / 1600 -70 / -70 Weight 61.5 kg Intake: IV 1000 / 1000 LR 1000 mL Inj 1,000 ML @ 84 1000 / 1000 mls/hr IV.CONT .[id number] [facility] Rx# :[id number] Oral 600 / 600 480 / 480 Output: Urine 550 / 550 Other: # Voids 4 Date of Last Bowel Movement 09/04/18 09/06/18 # Bowel Movements 0 1 <Orlando Gonsales - 09/06/18 10:35> Narrative: General: Well-developed, alert, and in no acute distress. Appears stated age HEENT: Atraumatic, PERRL, non-icteric sclera and no conjunctival injection, moist mucous membranes Neck: Supple, trachea midline Cardiac: Regular rate and rhythm with 2 out of 6 systolic murmur Pulmonary: Non-labored breathing. Lungs clear to auscultation bilaterally with good air movement and without wheeze Abdomen: Normal bowel sounds, soft and non-tender without rebound or guarding Extremities: 2+ pitting edema of the left foot and pitting edema to the left knee. 2+ posterior tibial and dorsalis pedis pulses. There are 2 circular 2 cm wounds that appear chronic to the left richards. Sensation is intact and all movements are grossly intact. <Orlando Gonsales - 09/06/18 10:35> Assessment and Plan - Assessment (1) PAD (peripheral artery disease) Code(s): I73.9 - Peripheral vascular disease, unspecified Status: Acute (2) Ileus Code(s): K56.7 - Ileus, unspecified Status: Acute (3) Hypertension Code(s): I10 - Essential (primary) hypertension Status: Chronic (4) Hyperlipidemia Code(s): E78.5 - Hyperlipidemia, unspecified Status: Chronic (5) COPD (chronic obstructive pulmonary disease) Code(s): J44.9 - Chronic obstructive pulmonary disease, unspecified Status: Chronic <Minesh Butt - 09/08/18 12:50> (1) PAD (peripheral artery disease) Code(s): I73.9 - Peripheral vascular disease, unspecified Status: Acute (2) Ileus Code(s): K56.7 - Ileus, unspecified Status: Acute (3) Hypertension Code(s): I10 - Essential (primary) hypertension Status: Chronic (4) Hyperlipidemia Code(s): E78.5 - Hyperlipidemia, unspecified Status: Chronic (5) COPD (chronic obstructive pulmonary disease) Code(s): J44.9 - Chronic obstructive pulmonary disease, unspecified Status: Chronic <Orlando Gonsales - 09/06/18 10:31> - Assessment and Plan She is a 63-year-old female that is 7 days status post left femoral bypass surgery who presents with nausea, vomiting, inability to tolerate p.o. and increasing pain in the left lower extremity. Status post left femoral bypass surgery/peripheral artery disease: -Consult to Dr. Villanueva (vascular surgery) * Compression stocking to left lower extremity * Stable from a vascular standpoint for discharge She is neurovascularly intact distal to the surgery and has palpable peripheral pulses Morphine pain scale (inability to tolerate p.o. pain meds) Continue home medications ASA 81 mg and Plavix 75 mg -Consult to physical therapy for evaluation and treatment of her mobility issues Chest pain: Her chest pain does not seem to be cardiac in nature and is most likely postsurgical pain. Her first troponin was 0.04. EKG showed marked T wave abnormalities, however these appear to be stable from her EKG on 08/26/18. Repeat troponin .04 Continuous telemetry Chronic wounds of the left lower extremity: They do appear chronic, however they do appear to be healing. This improvement is likely secondary to her bypass. Consult to wound care Potential postoperative ileus: Her nausea and vomiting may be related to surgery , however they also may be related to a gastroenteritis. She also had some lactic acid elevation at 2.1, this is most likely due to her dehydration. -Liquid diet, advance as tolerated Reglan as needed nausea -Repeat lactic acid ordered COPD: She is not on any home medications DuoNeb every 6 hours as needed for shortness of breath Hypertension: Continue home medicine losartan 50 mg p.o. daily Hyperlipidemia: Continue home medication Lipitor 20 mg daily Fluids: LR at 84 cc/h Electrolytes: monitor and replete as needed Nutrition: Liquid/cardiac diet, advance as tolerated GI prophylaxis: not indicated VTE prophylaxis: Lovenox 40 mg SQ <Orlando Gonsales - 09/06/18 10:35> - Attending Attestation See the residents documentation for details. I saw and evaluated the patient regarding the morrison portions of this evaluation and agree with the residents findings and plans as written. Parts of this note were created using [employer] voice recognition software program. While efforts were made to correct any mistakes made by this software, some mistakes, errors, and omissions may remain in the final note that were not caught when the note was originally created. Plan of care was discussed and agreed upon with the patient as specifically documented in the above note. An opportunity to ask questions with explanation was provided. Patient voiced understanding on all information reviewed and discussed. <Minesh Butt - 09/08/18 12:50>
--- NOTE | 2018-09-06 11:07 | P.DCO ---
- Physical Therapy Order: Evaluate and treat - Home Health Nursing Order: Medical education, Signs/symptoms of disease process, Nursing assessment with vital signs - Home Health Aide Order: To assist in: fashion styling intern and meal prep - Case Management Consult Case Management Consult-Home Health: Yes - Certification I have seen patient Chante Munoz on 09/06/18. My clinical findings support the need for the requested home health care services because: Limited mobility due to disease progression, Limited ability to care for self I certify that my clinical findings support that this patient is homebound because: Unsteady gait/balance
--- NOTE | 2018-09-06 13:10 | P.DCO ---
- Home Health Nursing Order: Medical education, Signs/symptoms of disease process, Nursing assessment with vital signs - Case Management Consult Case Management Consult-Home Health: Yes - Certification I have seen patient Chante Munoz on 09/06/18. My clinical findings support the need for the requested home health care services because: Limited mobility due to disease progression, Limited ability to care for self I certify that my clinical findings support that this patient is homebound because: Unsteady gait/balance
== END 2018-09-06 12:35 | disposition home or self-care (01) ==
LOC: NEDA 12:33 → NEPE 12:33 → NEDA 18:55 → N04 18:59
PROVIDERS: ADMIT Family Medicine; ATTEND Family Medicine